=== PATIENT | male | born 1945 | race Caucasian/White ===

== ENCOUNTER 2018-02-08 11:29 | Inpatient (IN) | payer MEDICARE, SELFPAY ==
[2018-02-08] VITALS (14 sets, daily range): BP systolic 99–123; BP diastolic 65–101; PULSE 86–138; RESP 13–24; TEMP 36–36.7; O2SAT 93–99; BMI 30.8; BMI 31.6; BMI 31.7
--- NOTE | 2018-02-08 11:36 | NURSING ---
NO OLD EKGS
--- NOTE | 2018-02-08 12:13 | RAD_ITS ---
STUDY: X-RAY CHEST REASON FOR EXAM: Male, 73 years old. Chest pain. TECHNIQUE: AP portable view. COMPARISON: None. FINDINGS: Mild pulmonary hypoinflation. The lungs are clear. There is no demonstrated pleural abnormality. Normal size heart. Normal mediastinum and jose. Normal visualized pulmonary arteries. Normal visualized aortic arch and descending thoracic aorta. Normal visualized thoracic spine. Normal visualized ribs, clavicles, and shoulders. There is no demonstrated abnormality of the visualized soft tissue structures of the upper abdomen. RAD/Chest 1 View (Portable) IMPRESSION: Normal limited inspiratory chest radiograph. Electronically Signed: Homer Van MD at 12:50 EDT , Service support ,
--- NOTE | 2018-02-08 12:13 | EKG12_ITS ---
Test Reason : CP Blood Pressure : / mmHG Vent. Rate : 135 BPM Atrial Rate : 135 BPM P-R Int : 226 ms QRS Dur : 088 ms QT Int : 174 ms P-R-T Axes : -12 062 193 degrees QTc Int : 261 ms Sinus tachycardia with 1st degree A-V block Nonspecific ST and T wave abnormality Abnormal ECG Confirmed by AMILCAR BROOKS, PAM ([id number]), supervising editor trailer KI GARRETT ([id number]) on 02/12/2018 8:50:27 AM Referred By: Nghia Lopez Confirmed By:PAM FITZGERALD MD
--- NOTE | 2018-02-08 12:14 | ED.VISSUMM ---
- ER Visit Summary Date of Service: 02/08/18 Chief Complaint: Chest pain History of Present Illness: The patient is a 73 M presenting with chest pain. Patient woke up this morning with left-sided chest pain. He went golfing. He states he he began to feel diaphoretic and near syncopal. He has not had these symptoms in the past. He denies PE/DVT risk factors. He has a history of coronary disease, diabetes, hypertension, hyperlipidemia. He is not a smoker. He has 1 stent from 10 years ago. Physical Examination: Vitals are stable. Patient is afebrile. Alert no acute distress. HEENT exam is unremarkable. Neck is supple. Lungs are clear and equal bilaterally. Heart is regular and tachycardic Abdomen is soft nontender nondistended. Extremities are unremarkable. Skin is warm and dry. No focal neurologic deficit. Remainder of exam is unremarkable. Emergency Department Course and Treatment: EKG is sinus tachycardia rate of 135. Patient was given aspirin on arrival. CBC normal except platelets 133. Chemistry normal except for sodium 133, creatinine 1.81. Troponin is 0.379. D-dimer 2.81. Patient is pain-free on reevaluation. He was given Lovenox subcutaneously. Discussed with the hospitalist for admission. Disposition: Admission Impression: Chest pain This note was generated with [employer] dictation software. It may contain incorrect words, spelling, and punctuation that were not noted in review of the chart prior to signing ED Disposition - Plan for ED Patient: Disposition: Acute Care Hospital [facility] Chief Complaint: Chest Pain
[2018-02-08] MEDS: Aspirin 81 MG TAB.CHEW 324 MG PO (12:21)
[2018-02-08 12:24] LABS: Absolute Lymphocyte Count 0.98 X10^3/ul (0.83-4.51); Absolute Neutrophil Count 7.6 X10^3/uL (2.0-7.7); Basophil# 0.02 X10^3/uL; Basophil% 0.2 % (0-1); Eosinophil# 0.06 X10^3/uL; Eosinophils% 0.7 % (0-5); Hematocrit 39.8 % (40-54); Hemoglobin 13.6 g/dl (13.0-16.5); Lymphocyte # 0.98 X10^3/ul (4.0); Lymphocyte % 10.8 % (19-41); Mean Corp Hgb Conc 34.2 g/gl (32-36); Mean Corpuscular Hgb 33.4 pg (27.0-32.0); Mean Corpuscular Volume 97.8 fL (80-94); Mean Platelet Vol. 10.4 fl (6.2-12.0); Monocyte# 0.42 X10^3/uL; Monocyte% 4.6 % (0-10); Neutrophil # 7.59 X10^3/uL (2.7-7.7); Neutrophil % 83.5 % (47-70); POSITIVE COUNT NO; POSITIVE DIFFERENTIAL NO; POSITIVE MORPHOLOGY NO; Platelet Count 133 K/mm3 (150-450); RBC Distribution Width CV 13.7 % (11.6-14.6); RBC Distribution Width SD 48.5 fl (35.1-43.9); Red Blood Count 4.07 M/mm3 (4.6-6.2); White Blood Count 9.1 K/mm3 (4.4-11.0)
--- NOTE | 2018-02-08 12:27 | ED.RN ---
CESAR FROM LAB CALLED STATING D-DIMER NEEDS REDRAWN. INFORMATION RELAYED TO NURSE.
[2018-02-08 12:40] LABS: Anion Gap 16 (5-15); BUN 14 mg/dL (7-18); BUN/Creat Ratio 7.7 RATIO (10-20); Calcium,Total 8.4 mg/dL (8.5-10.1); Chloride 103 mmol/L (98-107); Creatinine, Serum 1.81 mg/dL (0.70-1.30); EST Glomerular Filtration Rate 40 mL/min (>60); Est Glom Filt Rate - Afr Amer 48 mL/min (>60); Estimated Creatinine Clearance 38.65 ml/min; Glucose 388 mg/dL (74-106); Potassium 4.4 mmol/L (3.5-5.1); Sodium Level 133 mmol/L (136-145)
[2018-02-08 12:53] LABS: D-Dimer Quantitative (DVT/PE) 2.81 FEU/ug/m (0.27-0.49)
--- NOTE | 2018-02-08 12:54 | ED.RN ---
LAB CALLED FOR RESULTS OF CRITICAL FINDING. D-DIMER RESULT OF 2.81, DR. AREVALO NOTIFIED FACE TO FACE. NO ORDERS GIVEN AT THIS TIME.
[2018-02-08] MEDS: Enoxaparin 100 MG/ML Syringe SC ×2 (14:00→22:16)
--- NOTE | 2018-02-08 14:47 | CT_ITS ---
STUDY: CTA CHEST REASON FOR EXAM: Male, 73 years old. Chest pain. RADIATION DOSAGE (If Supplied By Facility): CTDIvol = ( 22.81 ) mGy, DLP = ( 780.59 ) mGycm TECHNIQUE: The examination was performed with the intravenous administration of 75ml ml of Isovue 370 contrast material. Post-processing of the angiographic images was performed, with multiplanar reformation and 3D reconstruction. Individualized dose optimization techniques were used for this CT. COMPARISON: None. FINDINGS: There is a saddle embolus spanning the bifurcation of the right and left main pulmonary arteries. There are large central pulmonary emboli in the distal main pulmonary arteries bilaterally which extend into all lobes of both lungs. There is flattening of the interventricular septum, consistent with right heart strain. The heart is normal in size. There are coronary artery stents noted. There is no pericardial effusion. There is no thoracic lymphadenopathy. There is a moderate sized hiatal hernia present. There is no pneumothorax. There are no pulmonary infiltrates or pleural effusions. Images through the upper abdomen demonstrate no significant abnormality. There are no destructive osseous lesions. CT/CTA Chest W/WO Contrast IMPRESSION: Saddle embolus spanning the bifurcation of the right and left main pulmonary arteries. Large central pulmonary emboli in the distal main pulmonary arteries bilaterally which extend into all lobes of both lungs. Flattening of the interventricular septum, consistent with right heart strain. Clear lungs. Moderate-sized hiatal hernia. N.B. : The above information has been verbally conveyed by Ruiz Avelar to Dr. Lopez, SUMMER, on 02/08/2018 18:40:07 (ET). Electronically Signed: Ruiz Avelar, at 18:13 EDT Tel , Service support ,
--- NOTE | 2018-02-08 14:47 | ECHOD_ITS ---
Reason For Study: CHEST PAIN Procedure This was a 2D Doppler, Color Flow transthoracic echocardiogram. Exam performed portable in patient room. Left Ventricle Normal LV size. The estimated ejection fraction is 50 %. Diastolic function is indeterminate. No regional wall motion abnormalities noted. Right Ventricle Moderately dilated right ventricle. Mild to moderate global right ventricular systolic dysfunction. Atria The left atrium is mildly enlarged. Normal right atrium. Mitral Valve Normal mitral valve. Tricuspid Valve Normal tricuspid valve. Mild (1+) tricuspid valve insufficiency. Pulmonary artery systolic pressure is 28 mmHg. Aortic Valve The aortic valve is not well visualized. Pulmonic Valve The pulmonic valve is not well visualized. Great Vessels Mildly dilated aortic root. The pulmonary artery is normal size. Pericardium/Pleural No pericardial effusion. MMode/2D Measurements & Calculations LVIDd: 5.1 cm IVSd: 0.87 cm Ao root diam: 3.6 cm LVIDs: 3.8 cm LVPWd: 0.95 cm LA dimension: 3.5 cm FS: 25.4 % LAV(MOD-bp): 59.1 ml LVAd ap4: 32.7 cm2 SV(MOD-sp4): 54.6 ml LAV(MOD-bp) Indexed: 27.2 ml/m2 EDV(MOD-sp4): 113.6 ml LAV(MOD-sp2): 53.3 ml EDV(sp4-el): 117.7 ml LAV(MOD-sp4): 63.8 ml LVAs ap4: 21.1 cm2 ESV(MOD-sp4): 59.0 ml ESV(sp4-el): 60.3 ml EF(MOD-sp4): 48.1 % EF(sp4-el): 48.8 % SV(sp4-el): 57.4 ml LA A4 area: 21.4 cm2 RA A4 area: 17.2 cm2 Doppler Measurements & Calculations Ao V2 max: 96.8 cm/sec LV V1 max: 48.6 cm/sec PA V2 max: 60.5 cm/sec Ao max P.8 mmHg LV V1 max P.95 mmHg PI end-d isaac: 80.1 cm/sec TR max isaac: 244.5 cm/sec TR max P.0 mmHg Interpretation Summary Normal LV size. The estimated ejection fraction is 50 %. Diastolic function is indeterminate. Moderately dilated right ventricle. Mild to moderate global right ventricular systolic dysfunction. Mild (1+) tricuspid valve insufficiency. Ordering Physician: Nghia Lopez Performed By: Mame Armas, CELENACS, RVT
[2018-02-08] MEDS: 0.9% Normal Saline 1,000 ML 125 ML IV ×2 (15:30→22:19)
[2018-02-08 15:41] LABS: Bedside Glucose 252 mg/dL (70-110)
[2018-02-08] MEDS: Clopidogrel Bisulfate 75 MG Tablet PO (15:49)
[2018-02-08] MEDS: Insulin Lispro 100 UNIT/ML INSULN.PEN SC (17:32)
[2018-02-08] MEDS: Glucerna Shake 120 ML LIQUID PO (17:35)
--- NOTE | 2018-02-08 17:43 | PCM.HP.STD ---
Problem List (1) Chest pain Status: Acute Qualifiers: Chest pain type: precordial pain Qualified Code(s): R07.2 - Precordial pain History of Present Illness Date of Admission: 02/08/18 Chief Complaint: Chest pain The patient is a 73 year old M who was seen in the emergency room at [facility] with chief complaint of precordial chest pain which began earlier this morning. He described the chest pain as pressure-like in nature, it was accompanied by weakness but no shortness of breath. Patient denied any diaphoresis, he denied any radiation of the chest discomfort into his neck or down his arms or into his back area. Patient denied any nausea or vomiting. Patient stated to this examiner that activity actually resulted in the chest pain getting better today. Patient has a remote history of coronary artery disease with a stent placement 10 years ago, he does have type 2 diabetes. Evaluation in the emergency room included an EKG which showed a sinus tachycardia without evidence of ischemic changes, patient's labs showed an elevated troponin at 0.379, patient's glucose is elevated at 388, white blood cell count was unremarkable. Patient had a chest x-ray which showed no evidence of pathology, patient's d-dimer was elevated at 2.81, he was elevated at 1.81. On examination, patient is alert and appropriate, he does not have any complaints of chest pain, lungs were clear bilaterally, heart rate and rhythm is regular, no lower extremity edema was noted. Patient will be admitted to PCU for a non-STEMI, cardiology was contacted and will see the patient in consultation, they advised giving the patient Plavix and Lovenox subcu to fully anticoagulate the patient. Due to the fact the patient has an elevated d-dimer and I do not really have a reason for this d-dimer elevation, patient may have a pulmonary embolism and I will order a CTA to be done after the patient reaches the floor. Patient will be given IV fluids due to his elevated creatinine. Past Medical History Allergies No Known Allergies Allergy (Verified 02/08/18 11:54) Surgical History: tonsillectomy, - - Coronary artery stent placement Psychiatric History: No pertinent psych hx Lives: Spouse/ Significant Other Smoking Status: Former smoker Tobacco Use: Non-smoker Alcohol: Occasional - Patient has regular alcohol intake of approximately 4 drinks a night according to the Drugs: None - *Family History Maternal History Items: Heart Disease - Patient's mother of an MA in her 60s Paternal History Items: Cancer - Prostate cancer Review of Systems Constitutional: Reports: Fatigue. Denies: Anorexia, Fever, Night Sweats, Malaise, Weakness, Weight Change Eyes: Denies: Blurred vision, Cataracts, Conjunctivae Inflammation, Double vision, Drainage HEENT: Denies: Difficulty Hearing, Difficulty Swallowing, Dysphasia, Ear Pain, Eye Pain, Head Aches, Hearing Changes, Nasal bleeding, Nasal Congestion, Post Nasal Drip Cardiovascular: Reports: Chest Pain, Chest Pressure. Denies: Claudication, Edema, Light Headedness, Orthopnea, Palpitations, Paroxysmal Noc. Dyspnea, Syncope Respiratory: Denies: Cough, Hemoptysis, Pleuritic Pain, Shortness of Breath, Shortness of breath at rest, Shortness of breath upon exertion, Sputum production Gastrointestinal: Denies: Abdominal Pain, Constipation, Diarrhea, Hematemesis, Hematochezia, Nausea, Melena, Vomiting Genitourinary: Denies: Dysuria, Frequency, Hematuria, Hesitancy, Incontinence, Nocturia, Urgency Musculoskeletal: Denies: Foot Pain, Hand Pain, Joint Pain, Joint stiffness, Joint swelling, Joint Tenderness, Leg Pain Skin: Denies: Dryness, Jaundice, Pruritis, Rash Neurological: Denies: Blurred vision, Double vision, Slurred speech, Difficulty swallowing, Focal weakness, Headaches, Incoordination, Numbness, Tingling Psychiatric: Denies: Anxiety, Depression, Homicidal Ideations, Suicidal Ideations Endocrine: Denies: Change in Body Habitus, Heat/ Cold Intolerance, Polydipsia, Polyuria Hematologic/ Lymphatic: Denies: Adenopathy, Anemia, Easy Bruising, Easy Bleeding, Petechiae, Purpura VTE Information - Inpt Only VTE Present on Admission: No VTE Mechan Device Prophylaxis: None VTE Pharm Prophylaxis ordered?: No Reason prophylaxis not ordered:: Medical Contraindication - Patient will be fully anticoagulated due to suspected non-STEMI Patient Problems: Active and Suspected Problems Chest pain (Acute) - Physical Exam General: Alert, Oriented x3, Cooperative, No apparent distress, Well developed, Well nourished HEENT: Atraumatic, PERRLA, EOMI, Normocephalic Oral: Moist Mucosa Neck: Supple, No JVD, Negative Carotid Bruits, No Nuchal Rigidity, Trachea Midline, Thyroid Normal Size and Texture Lungs: Clear to auscultation, Normal air movement, No rhonchi, No wheeze, No rales Cardiovascular: Regular rate, Regular Rhythm, Normal S1, Normal S2, No murmurs, No Ectopic Activity, PMI Normal, No rub noted, Tachycardic Abdomen: Bowel Sounds Present, Soft, Non Tender, Non-Distended Extremities: No clubbing, No cyanosis, No edema, Capillary Refill Less than 3 Seconds Skin: No rashes, No breakdown Musculoskeletal: No Tenderness to Palpation of Joints or Extremities Neurological: Cranial nerves II-XII grossly intact, Neuro grossly intact, Muscle tone normal, Sensory exam intact to light touch and pain, Coordination normal Psych/Mental Status: Normal Affect, Appropriate, Alert and oriented to time, place, person, mood and affect Vital Signs Temp Pulse Resp BP Pulse Ox 97.5 F L 113 H 19 H 104/70 96 02/08/18 14:52 02/08/18 14:52 02/08/18 14:52 02/08/18 14:52 02/08/18 15:45 Oxygen Flow Rate (L/min) 2 Oxygen Delivery Method Nasal Cannula Weight: 100.2 kg Body Mass Index (BMI) 31.6 Laboratory Tests Past 24 Hrs 02/08/18 15:59 Troponin I 0.797 H* POC Glucose 02/08/18 15:31 POC Glucose 252 H Assessment/Plan All Active Problems Chest pain (Acute) #1 acute [id number] will be admitted to PCU, he will be maintained on subcu Lovenox for full anticoagulation, cardiac enzymes will be cycled, he will be monitored on telemetry, patient will have an echocardiogram performed, patient will be seen in consultation by cardiology, patient will be maintained on a baby aspirin a day and Plavix 75 mg daily. #2 elevated [id number]-[id number] unclear, patient will undergo CTA of his chest today to rule out pulmonary embolism #3 type 2 diabetes-patient's blood sugars will be monitored by fingerstick and sliding scale insulin will be administered #4 elevated creatinine-I have no creatinine available for comparison, patient will be given IV fluids and a BMP will be rechecked tomorrow #5 history of coronary artery disease with stent placement approximately 10 years ago #6 hyperlipidemia #7 essential hypertension At this time, patient does not know the doses of his medications, his also does not know the doses of his medications, she is to contact nursing this evening to provide a full list and dose of his medications. Code Visit Inpatient E&M: 00325 Init Hosp L3
--- NOTE | 2018-02-08 17:48 | HP.PCM_ITS ---
Problem List (1) Chest pain Status: Acute Qualifiers: Chest pain type: precordial pain Qualified Code(s): R07.2 - Precordial pain History of Present Illness Date of Admission: 02/08/18 Chief Complaint: Chest pain The patient is a 73 year old M who was seen in the emergency room at [facility] with chief complaint of precordial chest pain which began earlier this morning. He described the chest pain as pressure-like in nature, it was accompanied by weakness but no shortness of breath. Patient denied any diaphoresis, he denied any radiation of the chest discomfort into his neck or down his arms or into his back area. Patient denied any nausea or vomiting. Patient stated to this examiner that activity actually resulted in the chest pain getting better today. Patient has a remote history of coronary artery disease with a stent placement 10 years ago, he does have type 2 diabetes. Evaluation in the emergency room included an EKG which showed a sinus tachycardia without evidence of ischemic changes, patient's labs showed an elevated troponin at 0.379, patient's glucose is elevated at 388, white blood cell count was unremarkable. Patient had a chest x-ray which showed no evidence of pathology, patient's d-dimer was elevated at 2.81, he was elevated at 1.81. On examination, patient is alert and appropriate, he does not have any complaints of chest pain, lungs were clear bilaterally, heart rate and rhythm is regular, no lower extremity edema was noted. Patient will be admitted to PCU for a non-STEMI, cardiology was contacted and will see the patient in consultation, they advised giving the patient Plavix and Lovenox subcu to fully anticoagulate the patient. Due to the fact the patient has an elevated d-dimer and I do not really have a reason for this d-dimer elevation, patient may have a pulmonary embolism and I will order a CTA to be done after the patient reaches the floor. Patient will be given IV fluids due to his elevated creatinine. Past Medical History Allergies No Known Allergies Allergy (Verified 02/08/18 11:54) Surgical History: tonsillectomy, - - Coronary artery stent placement Psychiatric History: No pertinent psych hx Lives: Spouse/ Significant Other Smoking Status: Former smoker Tobacco Use: Non-smoker Alcohol: Occasional - Patient has regular alcohol intake of approximately 4 drinks a night according to the Drugs: None - *Family History Maternal History Items: Heart Disease - Patient's mother of an NE in her 60s Paternal History Items: Cancer - Prostate cancer Review of Systems Constitutional: Reports: Fatigue. Denies: Anorexia, Fever, Night Sweats, Malaise, Weakness, Weight Change Eyes: Denies: Blurred vision, Cataracts, Conjunctivae Inflammation, Double vision, Drainage HEENT: Denies: Difficulty Hearing, Difficulty Swallowing, Dysphasia, Ear Pain, Eye Pain, Head Aches, Hearing Changes, Nasal bleeding, Nasal Congestion, Post Nasal Drip Cardiovascular: Reports: Chest Pain, Chest Pressure. Denies: Claudication, Edema, Light Headedness, Orthopnea, Palpitations, Paroxysmal Noc. Dyspnea, Syncope Respiratory: Denies: Cough, Hemoptysis, Pleuritic Pain, Shortness of Breath, Shortness of breath at rest, Shortness of breath upon exertion, Sputum production Gastrointestinal: Denies: Abdominal Pain, Constipation, Diarrhea, Hematemesis, Hematochezia, Nausea, Melena, Vomiting Genitourinary: Denies: Dysuria, Frequency, Hematuria, Hesitancy, Incontinence, Nocturia, Urgency Musculoskeletal: Denies: Foot Pain, Hand Pain, Joint Pain, Joint stiffness, Joint swelling, Joint Tenderness, Leg Pain Skin: Denies: Dryness, Jaundice, Pruritis, Rash Neurological: Denies: Blurred vision, Double vision, Slurred speech, Difficulty swallowing, Focal weakness, Headaches, Incoordination, Numbness, Tingling Psychiatric: Denies: Anxiety, Depression, Homicidal Ideations, Suicidal Ideations Endocrine: Denies: Change in Body Habitus, Heat/ Cold Intolerance, Polydipsia, Polyuria Hematologic/ Lymphatic: Denies: Adenopathy, Anemia, Easy Bruising, Easy Bleeding , Petechiae, Purpura VTE Information - Inpt Only VTE Present on Admission: No VTE Mechan Device Prophylaxis: None VTE Pharm Prophylaxis ordered?: No Reason prophylaxis not ordered:: Medical Contraindication - Patient will be fully anticoagulated due to suspected non-STEMI Patient Problems: Active and Suspected Problems Chest pain (Acute) - Physical Exam General: Alert, Oriented x3, Cooperative, No apparent distress, Well developed, Well nourished HEENT: Atraumatic, PERRLA, EOMI, Normocephalic Oral: Moist Mucosa Neck: Supple, No JVD, Negative Carotid Bruits, No Nuchal Rigidity, Trachea Midline, Thyroid Normal Size and Texture Lungs: Clear to auscultation, Normal air movement, No rhonchi, No wheeze, No rales Cardiovascular: Regular rate, Regular Rhythm, Normal S1, Normal S2, No murmurs, No Ectopic Activity, PMI Normal, No rub noted, Tachycardic Abdomen: Bowel Sounds Present, Soft, Non Tender, Non-Distended Extremities: No clubbing, No cyanosis, No edema, Capillary Refill Less than 3 Seconds Skin: No rashes, No breakdown Musculoskeletal: No Tenderness to Palpation of Joints or Extremities Neurological: Cranial nerves II-XII grossly intact, Neuro grossly intact, Muscle tone normal, Sensory exam intact to light touch and pain, Coordination normal Psych/Mental Status: Normal Affect, Appropriate, Alert and oriented to time, place, person, mood and affect Vital Signs Temp Pulse Resp BP Pulse Ox 97.5 F L 113 H 19 H 104/70 96 02/08/18 14:52 02/08/18 14:52 02/08/18 14:52 02/08/18 14:52 02/08/18 15:45 Oxygen Flow Rate (L/min) 2 Oxygen Delivery Method Nasal Cannula Weight: 100.2 kg Body Mass Index (BMI) 31.6 Laboratory Tests Past 24 Hrs 02/08/18 15:59 Troponin I 0.797 H* POC Glucose 02/08/18 15:31 POC Glucose 252 H Assessment/Plan All Active Problems Chest pain (Acute) #1 acute [id number] will be admitted to PCU, he will be maintained on subcu Lovenox for full anticoagulation, cardiac enzymes will be cycled, he will be monitored on telemetry, patient will have an echocardiogram performed, patient will be seen in consultation by cardiology, patient will be maintained on a baby aspirin a day and Plavix 75 mg daily. #2 elevated [id number] unclear, patient will undergo CTA of his chest today to rule out pulmonary embolism #3 type 2 diabetes-patient's blood sugars will be monitored by fingerstick and sliding scale insulin will be administered #4 elevated creatinine-I have no creatinine available for comparison, patient will be given IV fluids and a BMP will be rechecked tomorrow #5 history of coronary artery disease with stent placement approximately 10 years ago #6 hyperlipidemia #7 essential hypertension At this time, patient does not know the doses of his medications, his also does not know the doses of his medications, she is to contact nursing this evening to provide a full list and dose of his medications. Code Visit Inpatient E&M: 85253 Init Hosp L3
--- NOTE | 2018-02-08 17:55 | PCM.HOSP.N ---
Hospitalist Note I received word this afternoon the patient's CTA of his chest was positive for pulmonary embolus, I let the patient and the patient's daughter know this, I also talked with cardiology who did not feel they needed to see the patient at this time-they would be glad to see the patient if his troponin elevates markedly. I will keep the patient on Lovenox for now, he does not require any oxygen as he is not hypoxic, patient has not had any history of venous thromboembolism in the past and he is not aware of any history in his family. Patient has had no swelling in his legs and he has had no trauma to his lower extremity and he has not had an extended period of immobility. He will need further workup as an outpatient to exclude an occult malignancy. Echocardiogram will be performed on Saturday, I may also order a venous duplex scan of both lower extremities to further investigate his VTE.
--- NOTE | 2018-02-08 22:10 | NURSING ---
VERIFIED WITH PHARMACY WAS OKAY TO GIVE DOSE OF LOVENOX AT THIS TIME.
[2018-02-08] MEDS: Atorvastatin Calcium 80 MG Tablet PO (22:17)
[2018-02-08] MEDS: Pantoprazole Sodium 40 MG Tablet PO (22:17)
[2018-02-08] MEDS: Doxazosin 1 MG Tablet 2 MG PO (22:17)
[2018-02-08 22:41] LABS: Bedside Glucose 134 mg/dL (70-110)
[2018-02-09] VITALS (13 sets, daily range): BP systolic 104–132; BP diastolic 61–72; PULSE 66–90; RESP 16–19; TEMP 36.1–37.1; O2SAT 94–97
--- NOTE | 2018-02-09 03:47 | EKG12_ITS ---
Test Reason : RHY CHANGE Blood Pressure : / mmHG Vent. Rate : 079 BPM Atrial Rate : 038 BPM P-R Int : 000 ms QRS Dur : 090 ms QT Int : 426 ms P-R-T Axes : 000 063 -08 degrees QTc Int : 488 ms Accelerated Junctional rhythm with retrograde conduction Nonspecific T wave abnormality Prolonged QT Abnormal ECG When compared with ECG of 08-FEB-2018 11:30, MANUAL COMPARISON REQUIRED, DATA IS UNCONFIRMED Confirmed by HERMAN BROOKS, KATIA ([id number]), metropolitan editor KI GARRETT ([id number]) on 02/14/2018 2:37:30 PM Referred By: Nghia Lopez Confirmed By:KATIA SUTTON MD
[2018-02-09 05:12] LABS: Anion Gap 10 (5-15); BUN 13 mg/dL (7-18); BUN/Creat Ratio 8.6 RATIO (10-20); Chloride 110 mmol/L (98-107); Creatinine, Serum 1.52 mg/dL (0.70-1.30); EST Glomerular Filtration Rate 48 mL/min (>60); Est Glom Filt Rate - Afr Amer 58 mL/min (>60); Estimated Creatinine Clearance 46.03 ml/min; Glucose 116 mg/dL (74-106); Magnesium 1.1 mg/dL (1.6-2.6); Phosphorus 2.8 mg/dL (2.5-4.9); Sodium Level 140 mmol/L (136-145)
[2018-02-09] MEDS: 0.9% Normal Saline 1,000 ML 125 ML IV ×2 (05:55→14:13)
[2018-02-09 06:56] LABS: Bedside Glucose 135 mg/dL (70-110)
--- NOTE | 2018-02-09 09:08 | VDLE_ITS ---
Reason For Study: PE RIGHT LEFT GSV is normal. GSV is normal. CFV is compressible, spontaneous, phasic, CFV is compressible, spontaneous, phasic, competent and demonstrates normal competent, and demonstrates normal augmentation. augmentation. FV is compressible, spontaneous, phasic, FV is compressible, spontaneous, phasic, competent and demonstrates normal competent and demonstrates normal augmentation. augmentation. POP V is compressible, spontaneous, phasic, POP V is compressible, spontaneous, phasic, competent and demonstrates normal competent and demonstrates normal augmentation. augmentation. T/P Trunk is compressible. T/P Trunk is compressible. PTV is compressible. PTV is compressible. RT PerV is compressible. LT PerV is compressible. Procedure Exam performed portable in patient room. A preliminary report was called and/or faxed to [facility]. Interpretation Summary No evidence for acute deep venous thrombosis bilateral lower extremities with patent and compressible bilateral great saphenous veins. Ordering Physician: Nghia Lopez Referring Physician: Nghia Lopez Performed By: Clary Cedillo RVT
[2018-02-09] MEDS: Glucerna Shake 120 ML LIQUID PO ×3 (09:25→16:36)
[2018-02-09] MEDS: Aspirin E.C. 81 MG Tablet PO (09:26)
[2018-02-09] MEDS: Fenofibrate 145 MG Tablet PO (09:26)
[2018-02-09] MEDS: Pantoprazole Sodium 40 MG Tablet PO ×2 (09:27→22:05)
[2018-02-09] MEDS: Lisinopril 40 MG Tablet PO (09:27)
[2018-02-09] MEDS: Rivaroxaban 15 MG Tablet PO ×2 (10:46→16:36)
--- NOTE | 2018-02-09 11:34 | PCM.CONS.GEN ---
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 use Diabetes mellitus complication status: with circulatory complication Diabetes mellitus complication detail: with other circulatory complications Qualified Code(s): E11.59 - Type 2 diabetes mellitus with other circulatory complications (5) GERD (gastroesophageal reflux disease) Status: Chronic Qualifiers: Esophagitis presence: esophagitis presence not specified Qualified Code(s): K21.9 - Gastro-esophageal reflux disease without esophagitis (6) Hypertension Status: Chronic Qualifiers: Hypertension type: essential hypertension Qualified Code(s): I10 - Essential (primary) hypertension Reason for Consult Date of Consultation: 02/09/18 Reason for Consultation: Pulmonary embolism History of Present Illness: The patient is a 73 year old M with past medical history listed below, who presented to [facility] on 02/08/2018 secondary to chest pain and shortness of breath. 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 Patient denied any associated diaphoresis, radiation, nausea or vomiting. Patient did note that his shortness of breath did not improve with resting. Patient was transported to the ER for further evaluation. In the emergency room, patient was noted to have sinus tachycardia and an elevated troponin. Patient was given Lovenox subcutaneously. There was some concern for possible pulmonary embolism, so a CT scan was obtained despite elevated creatinine. This was notable for saddle PE, so patient was admitted to the floor for further evaluation. Patient denies any previous history of immobility, travel or trauma. Patient states he has had his routine cancer screening. Patient denies any family history of previous blood clots. 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 Patient does drink 2-4 alcoholic beverages per day, but is never had withdrawal symptoms. Patient denies any illicit drug use. Patient does not take any herbal medications. Patient does have a history of coronary artery disease and had a stent placed approximately 10 years ago. Patient denies any prodromal symptoms prior to onset of symptoms. Patient denies any lower extremity edema, cellulitis, fever, chills, nausea or vomiting. Patient exercises regularly by swimming and playing [email or web address]. Review of systems otherwise negative x10 systems. Past Medical History Past Medical History (Chronic Problems): Chronic Problems Obesity (BMI 30.0-34.9) (Chronic) Diabetes mellitus (Chronic) GERD (gastroesophageal reflux disease) (Chronic) Hypertension (Chronic) Allergies No Known Allergies Allergy (Verified 02/08/18 11:54) Home Medications: Ambulatory Orders Medication Instructions Recorded Atenolol [Tenormin] 100 mg PO DAILY 02/08/18 Doxazosin Mesylate 2 mg PO QHS 02/08/18 Fenofibrate Nanocrystallized 160 mg PO DAILY 02/08/18 [Fenofibrate] Glimepiride [Amaryl] 6 mg PO DAILY 02/08/18 Liraglutide [Victoza] 1.8 mg SQ DAILY 02/08/18 Lisinopril [Zestril] 40 mg PO DAILY 02/08/18 Metformin HCl 1,000 mg PO BID 02/08/18 Pantoprazole Sodium [Protonix] 40 mg PO BID 02/08/18 Rosuvastatin Calcium [Crestor] 40 mg PO QHS 02/08/18 Surgical History: tonsillectomy, - - Coronary artery stent placement Psychiatric History: No pertinent psych hx Lives: Spouse/ Significant Other Smoking Status: Former smoker Tobacco Use: Non-smoker Alcohol: Occasional - Patient has regular alcohol intake of approximately 4 drinks a night according to the Drugs: None - *Family History Maternal History Items: Heart Disease - Patient's mother of an IN in her 60s Paternal History Items: Cancer - Prostate cancer Review of Systems Comment: See HPI Patient Problems: Active and Suspected Problems Chest pain (Acute) Saddle embolism of pulmonary artery (Acute) - Physical Exam General: Alert, Oriented x3, Cooperative, No apparent distress, Well developed, Well nourished, - - Obese HEENT: Atraumatic, PERRLA, EOMI, Normocephalic, - - No scleral icterus or injection Oral: Moist Mucosa, No Gingival or Mucosal Lesions/ Ulcerations Neck: Supple, No JVD, No Nodes, Trachea Midline Lungs: Clear to auscultation, Normal air movement, No rhonchi, No wheeze, No rales, - - Symmetric expansion. No dullness to percussion. Cardiovascular: Regular rate, Regular Rhythm, Normal S1, Normal S2, No murmurs, No rub noted, No Gallop Abdomen: Bowel Sounds Present, Soft, Non Tender, Non-Distended, Obese Extremities: No clubbing, No cyanosis, No edema, Capillary Refill Less than 3 Seconds Skin: No rashes, No breakdown Musculoskeletal: No Tenderness to Palpation of Joints or Extremities, No Muscle Wasting Lymphatic: No Cervical, Supraclavicular, or Inguinal Adenopathy Neurological: Cranial nerves II-XII grossly intact, Neuro grossly intact, Motor Exam 5/5 strength throughout Psych/Mental Status: Alert and oriented to time, place, person, mood and affect Vital Signs Temp Pulse Resp BP Pulse Ox 36.4 C L 90 19 H 112/62 95 02/09/18 09:21 02/09/18 09:21 02/09/18 09:21 02/09/18 09:21 02/09/18 09:21 Oxygen Flow Rate (L/min) 2 Oxygen Delivery Method Nasal Cannula Weight: 100.2 kg Body Mass Index (BMI) 31.6 Intake and Output for Last 24 Hours 02/07/18 02/08/18 02/09/18 23:59 23:59 23:59 Intake Total 1579 / 1579 944 / 944 Balance 1579 / 1579 944 / 944 Laboratory Tests Past 24 Hrs 02/08/18 02/08/18 02/09/18 15:59 18:00 04:44 Sodium 140 Potassium 4.0 Chloride 110 H Carbon Dioxide 20.0 L Anion Gap 10 BUN 13 Creatinine 1.52 H Estim Creat Clear Calc 46.03 Est GFR (MDRD) Af Amer 58 L Est GFR (MDRD) Non-Af 48 L BUN/Creatinine Ratio 8.6 L Glucose 116 H Calcium 8.0 L Phosphorus 2.8 Magnesium 1.1 L Troponin I 0.797 H* 0.855 H* POC Glucose 02/09/18 02/08/18 02/08/18 06:45 22:15 15:31 POC Glucose 135 H 134 H 252 H Clinical Impression(s) from Imaging Studies Chest X-Ray 02/08/18 12:13 IMPRESSION: Normal limited inspiratory chest radiograph. Electronically Signed: Homer Van MD at 12:50 EDT , Service support , Chest CTA 02/08/18 14:47 IMPRESSION: Saddle embolus spanning the bifurcation of the right and left main pulmonary arteries. Large central pulmonary emboli in the distal main pulmonary arteries bilaterally which extend into all lobes of both lungs. Flattening of the interventricular septum, consistent with right heart strain. Clear lungs. Moderate-sized hiatal hernia. N.B. : The above information has been verbally conveyed by Ruiz Avelar to Dr. Lopez, [facility], on 02/08/2018 18:40:07 (ET). Electronically Signed: Ruiz Avelar, at 18:13 EDT Tel , Service support , Assessment/Plan All Active Problems Chest pain (Acute) Saddle embolism of pulmonary artery (Acute) RECOMMENDATIONS: 1. Continue Lovenox therapy 2. Await echocardiogram 3. Walking oximetry prior to discharge 4. Prefer discharge on Eliquis therapy 5. Continue to cycle troponins, monitor telemetry IMPRESSIONS: 1. Acute hypoxic respiratory insufficiency secondary to saddle PE Patient currently on 2 L nasal cannula oxygen. Patient with extensive clot burden on CT scan of the chest, but appears to be tolerating this well. Patient does have an elevation in troponin, likely secondary to supply demand mismatch. Will need echo to evaluate for right heart strain. Patient does have elevated creatinine at baseline and likely should be placed on Eliquis therapy on discharge. Patient will need a walking oximetry prior to discharge. 2. Non-ST elevation [place] Patient was slightly elevated troponin, but no significant EKG changes. Clinical suspicion for supply demand mismatch, but patient does have a history of coronary artery disease with a stent approximately 10 years ago. Patient is currently on Lovenox therapy. Defer to hospitalist on whether cardiology needs to get involved. Await results of echocardiogram 3. Obesity/advanced age/diabetes/GERD/hypertension Complicates care, management, recovery and prognosis. Likely okay to continue with baseline medications. Monitor blood sugars as these can be elevated secondary to adrenal response. Code Visit Inpatient E&M: 75359 Init Hosp L3
--- NOTE | 2018-02-09 11:55 | CON.PCM_ITS ---
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: without longterm use Diabetes mellitus complication status: with circulatory complication Diabetes mellitus complication detail: with other circulatory complications Qualified Code(s): E11.59 - Type 2 diabetes mellitus with other circulatory complications (5) GERD (gastroesophageal reflux disease) Status: Chronic Qualifiers: Esophagitis presence: esophagitis presence not specified Qualified Code(s) : K21.9 - Gastro-esophageal reflux disease without esophagitis (6) Hypertension Status: Chronic Qualifiers: Hypertension type: essential hypertension Qualified Code(s): I10 - Essential (primary) hypertension Reason for Consult Date of Consultation: 02/09/18 Reason for Consultation: Pulmonary embolism History of Present Illness: The patient is a 73 year old M with past medical history listed below, who presented to [facility] on 02/08/2018 secondary to chest pain and shortness of breath. 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 Patient denied any associated diaphoresis, radiation, nausea or vomiting. Patient did note that his shortness of breath did not improve with resting. Patient was transported to the ER for further evaluation. In the emergency room, patient was noted to have sinus tachycardia and an elevated troponin. Patient was given Lovenox subcutaneously. There was some concern for possible pulmonary embolism, so a CT scan was obtained despite elevated creatinine. This was notable for saddle PE, so patient was admitted to the floor for further evaluation. Patient denies any previous history of immobility, travel or trauma. Patient states he has had his routine cancer screening. Patient denies any family history of previous blood clots. 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 Patient does drink 2-4 alcoholic beverages per day, but is never had withdrawal symptoms. Patient denies any illicit drug use. Patient does not take any herbal medications. Patient does have a history of coronary artery disease and had a stent placed approximately 10 years ago. Patient denies any prodromal symptoms prior to onset of symptoms. Patient denies any lower extremity edema, cellulitis, fever, chills, nausea or vomiting. Patient exercises regularly by swimming and playing [employer]. Review of systems otherwise negative x10 systems. Past Medical History Past Medical History (Chronic Problems): Chronic Problems Obesity (BMI 30.0-34.9) (Chronic) Diabetes mellitus (Chronic) GERD (gastroesophageal reflux disease) (Chronic) Hypertension (Chronic) Allergies No Known Allergies Allergy (Verified 02/08/18 11:54) Home Medications: Ambulatory Orders Medication Instructions Recorded Atenolol [Tenormin] 100 mg PO DAILY 02/08/18 Doxazosin Mesylate 2 mg PO QHS 02/08/18 Fenofibrate Nanocrystallized 160 mg PO DAILY 02/08/18 [Fenofibrate] Glimepiride [Amaryl] 6 mg PO DAILY 02/08/18 Liraglutide [Victoza] 1.8 mg SQ DAILY 02/08/18 Lisinopril [Zestril] 40 mg PO DAILY 02/08/18 Metformin HCl 1,000 mg PO BID 02/08/18 Pantoprazole Sodium [Protonix] 40 mg PO BID 02/08/18 Rosuvastatin Calcium [Crestor] 40 mg PO QHS 02/08/18 Surgical History: tonsillectomy, - - Coronary artery stent placement Psychiatric History: No pertinent psych hx Lives: Spouse/ Significant Other Smoking Status: Former smoker Tobacco Use: Non-smoker Alcohol: Occasional - Patient has regular alcohol intake of approximately 4 drinks a night according to the Drugs: None - *Family History Maternal History Items: Heart Disease - Patient's mother of an OR in her 60s Paternal History Items: Cancer - Prostate cancer Review of Systems Comment: See HPI Patient Problems: Active and Suspected Problems Chest pain (Acute) Saddle embolism of pulmonary artery (Acute) - Physical Exam General: Alert, Oriented x3, Cooperative, No apparent distress, Well developed, Well nourished, - - Obese HEENT: Atraumatic, PERRLA, EOMI, Normocephalic, - - No scleral icterus or injection Oral: Moist Mucosa, No Gingival or Mucosal Lesions/ Ulcerations Neck: Supple, No JVD, No Nodes, Trachea Midline Lungs: Clear to auscultation, Normal air movement, No rhonchi, No wheeze, No rales, - - Symmetric expansion. No dullness to percussion. Cardiovascular: Regular rate, Regular Rhythm, Normal S1, Normal S2, No murmurs, No rub noted, No Gallop Abdomen: Bowel Sounds Present, Soft, Non Tender, Non-Distended, Obese Extremities: No clubbing, No cyanosis, No edema, Capillary Refill Less than 3 Seconds Skin: No rashes, No breakdown Musculoskeletal: No Tenderness to Palpation of Joints or Extremities, No Muscle Wasting Lymphatic: No Cervical, Supraclavicular, or Inguinal Adenopathy Neurological: Cranial nerves II-XII grossly intact, Neuro grossly intact, Motor Exam 5/5 strength throughout Psych/Mental Status: Alert and oriented to time, place, person, mood and affect Vital Signs Temp Pulse Resp BP Pulse Ox 36.4 C L 90 19 H 112/62 95 02/09/18 09:21 02/09/18 09:21 02/09/18 09:21 02/09/18 09:21 02/09/18 09:21 Oxygen Flow Rate (L/min) 2 Oxygen Delivery Method Nasal Cannula Weight: 100.2 kg Body Mass Index (BMI) 31.6 Intake and Output for Last 24 Hours 02/07/18 02/08/18 02/09/18 23:59 23:59 23:59 Intake Total 1579 / 1579 944 / 944 Balance 1579 / 1579 944 / 944 Laboratory Tests Past 24 Hrs 02/08/18 02/08/18 02/09/18 15:59 18:00 04:44 Sodium 140 Potassium 4.0 Chloride 110 H Carbon Dioxide 20.0 L Anion Gap 10 BUN 13 Creatinine 1.52 H Estim Creat Clear Calc 46.03 Est GFR (MDRD) Af Amer 58 L Est GFR (MDRD) Non-Af 48 L BUN/Creatinine Ratio 8.6 L Glucose 116 H Calcium 8.0 L Phosphorus 2.8 Magnesium 1.1 L Troponin I 0.797 H* 0.855 H* POC Glucose 02/09/18 02/08/18 02/08/18 06:45 22:15 15:31 POC Glucose 135 H 134 H 252 H Clinical Impression(s) from Imaging Studies Chest X-Ray 02/08/18 12:13 IMPRESSION: Normal limited inspiratory chest radiograph. Electronically Signed: Homer Van MD at 12:50 EDT , Service support , Chest CTA 02/08/18 14:47 IMPRESSION: Saddle embolus spanning the bifurcation of the right and left main pulmonary arteries. Large central pulmonary emboli in the distal main pulmonary arteries bilaterally which extend into all lobes of both lungs. Flattening of the interventricular septum, consistent with right heart strain. Clear lungs. Moderate-sized hiatal hernia. N.B. : The above information has been verbally conveyed by Ruiz Avelar to Dr. Lopez, [facility], on 02/08/2018 18:40:07 (ET). Electronically Signed: Ruiz Avelar, at 18:13 EDT Tel , Service support , Assessment/Plan All Active Problems Chest pain (Acute) Saddle embolism of pulmonary artery (Acute) RECOMMENDATIONS: 1. Continue Lovenox therapy 2. Await echocardiogram 3. Walking oximetry prior to discharge 4. Prefer discharge on Eliquis therapy 5. Continue to cycle troponins, monitor telemetry IMPRESSIONS: 1. Acute hypoxic respiratory insufficiency secondary to saddle PE Patient currently on 2 L nasal cannula oxygen. Patient with extensive clot burden on CT scan of the chest, but appears to be tolerating this well. Patient does have an elevation in troponin, likely secondary to supply demand mismatch. Will need echo to evaluate for right heart strain. Patient does have elevated creatinine at baseline and likely should be placed on Eliquis therapy on discharge. Patient will need a walking oximetry prior to discharge. 2. Non-ST elevation [place] Patient was slightly elevated troponin, but no significant EKG changes. Clinical suspicion for supply demand mismatch, but patient does have a history of coronary artery disease with a stent approximately 10 years ago. Patient is currently on Lovenox therapy. Defer to hospitalist on whether cardiology needs to get involved. Await results of echocardiogram 3. Obesity/advanced age/diabetes/GERD/hypertension Complicates care, management, recovery and prognosis. Likely okay to continue with baseline medications. Monitor blood sugars as these can be elevated secondary to adrenal response. Code Visit Inpatient E&M: 35244 Init Hosp L3
[2018-02-09 12:01] LABS: Bedside Glucose 288 mg/dL (70-110)
[2018-02-09] MEDS: Insulin Lispro 100 UNIT/ML INSULN.PEN SC ×2 (12:49→22:05)
[2018-02-09 16:45] LABS: Bedside Glucose 111 mg/dL (70-110)
--- NOTE | 2018-02-09 18:21 | PN_ITS ---
Patient Problems: Active and Suspected Problems Chest pain (Acute) Saddle embolism of pulmonary artery (Acute) Subjective: Patient was seen and examined today, patient's troponins peaked at 0.855 today, patient has no complaints of any chest pain, creatinine today was 1.52. I started the patient on Xarelto today-his creatinine clearance is very close to 50 and I believe he can take Xarelto. I will recheck the patient's BMP tomorrow , I have reviewed pulmonary medicine's consultation and appreciate their participation in his care, I have chosen not to get cardiology involved at the present time, I will discuss his care with them tomorrow, I am not sure if the patient is actually had a non-STEMI or whether the troponin elevation is due to his massive PE. Patient does not appear hypoxic today and is comfortable, echocardiogram will be performed tomorrow. I will also get a venous duplex scan of the patient's legs tomorrow - Physical Exam General: Alert, Oriented x3, Cooperative, No apparent distress, Well developed, Well nourished HEENT: Atraumatic, PERRLA, EOMI, Normocephalic Oral: Moist Mucosa Neck: Supple, Trachea Midline, Thyroid Normal Size and Texture Lungs: Clear to auscultation, Normal air movement, No rhonchi, No wheeze, No rales Cardiovascular: Regular rate, Regular Rhythm, Normal S1, Normal S2, No murmurs, No Ectopic Activity, PMI Normal, No rub noted, No Gallop Abdomen: Bowel Sounds Present, Soft, Non Tender, Non-Distended Extremities: No clubbing, No cyanosis, No edema, Capillary Refill Less than 3 Seconds Skin: No rashes, No breakdown Musculoskeletal: No Tenderness to Palpation of Joints or Extremities Neurological: Cranial nerves II-XII grossly intact, Neuro grossly intact, Sensory exam intact to light touch and pain, Coordination normal Psych/Mental Status: Normal Affect, Appropriate, Alert and oriented to time, place, person, mood and affect Vital Signs Temp Pulse Resp BP Pulse Ox 97.0 F L 76 18 132/61 H 97 02/09/18 14:11 02/09/18 15:07 02/09/18 14:11 02/09/18 14:11 02/09/18 14:11 Oxygen Flow Rate (L/min) 2 Oxygen Delivery Method Nasal Cannula Weight: 100.2 kg Body Mass Index (BMI) 31.6 Intake and Output for Last 24 Hours 02/07/18 02/08/18 02/09/18 23:59 23:59 23:59 Intake Total 1579 / 1579 2484 / 2484 Balance 1579 / 1579 2484 / 2484 Laboratory Tests Past 24 Hrs 02/08/18 02/09/18 18:00 04:44 Sodium 140 Potassium 4.0 Chloride 110 H Carbon Dioxide 20.0 L Anion Gap 10 BUN 13 Creatinine 1.52 H Estim Creat Clear Calc 46.03 Est GFR (MDRD) Af Amer 58 L Est GFR (MDRD) Non-Af 48 L BUN/Creatinine Ratio 8.6 L Glucose 116 H Calcium 8.0 L Phosphorus 2.8 Magnesium 1.1 L Troponin I 0.855 H* POC Glucose 02/09/18 02/09/18 02/09/18 16:31 11:52 06:45 POC Glucose 111 H 288 H 135 H 02/08/18 22:15 POC Glucose 134 H Medical Necessity - Tobacco Use Smoking Status: Former smoker Tobacco Use: Non-smoker Assessment/Plan All Active Problems Chest pain (Acute) Saddle embolism of pulmonary artery (Acute) #1 Large pulmonary embolism-again patient was placed on Xarelto today, I will repeat his BMP tomorrow #2 Possible [id number] has no complaints of any chest pain today and appears hemodynamically stable, I will discuss his care with cardiology tomorrow #3 type 2 diabetes-patient's blood sugars will be monitored by fingerstick and sliding scale insulin will be administered #4 elevated creatinine-patient's creatinine has dropped from yesterday, I will continue IV fluids at a lower rate and repeat the BMP tomorrow #5 history of coronary artery disease with stent placement approximately 10 years ago #6 hyperlipidemia #7 essential hypertension Patient currently appears hemodynamically stable at this time Code Visit Inpatient E&M: 59636 Subs Hosp L2
[2018-02-09] MEDS: 0.9% Normal Saline 1,000 ML 75 ML IV (22:05)
[2018-02-09] MEDS: Atorvastatin Calcium 80 MG Tablet PO (22:05)
[2018-02-09] MEDS: Doxazosin 1 MG Tablet 2 MG PO (22:05)
[2018-02-09] MEDS: Metoprolol Tartrate 25 MG Tablet PO (22:07)
[2018-02-09 22:20] LABS: Bedside Glucose 205 mg/dL (70-110)
[2018-02-10] VITALS (11 sets, daily range): BP systolic 127–146; BP diastolic 78–85; PULSE 36–84; RESP 18–20; TEMP 36.5–36.7; O2SAT 88–96
[2018-02-10 06:30] LABS: Anion Gap 9 (5-15); BUN 8 mg/dL (7-18); BUN/Creat Ratio 6.7 RATIO (10-20); Chloride 112 mmol/L (98-107); EST Glomerular Filtration Rate 63 mL/min (>60); Est Glom Filt Rate - Afr Amer 77 mL/min (>60); Glucose 133 mg/dL (74-106); Magnesium 1.5 mg/dL (1.6-2.6); Potassium 4.2 mmol/L (3.5-5.1); Sodium Level 142 mmol/L (136-145)
[2018-02-10 06:50] LABS: Bedside Glucose 144 mg/dL (70-110)
--- NOTE | 2018-02-10 07:45 | PN_ITS ---
Patient Problems: Active and Suspected Problems Chest pain (Acute) Saddle embolism of pulmonary artery (Acute) Subjective: Patient did well overnight. Patient denies any bleeding complications. Patient reports subjective improvement in overall condition and states that he feels he has more energy today. Patient did report some mild unsteadiness with initial ambulation, but states it improved with effort. - Physical Exam General: Alert, Oriented x3, Cooperative, No apparent distress, Well developed, Well nourished, - - Obese. Speaking in full sentences. HEENT: Atraumatic, PERRLA, EOMI, Normocephalic, - - No scleral icterus or injection noted. Oral: Moist Mucosa, No Gingival or Mucosal Lesions/ Ulcerations Neck: Supple, No JVD, No Nodes, Trachea Midline Lungs: Clear to auscultation, Normal air movement, No rhonchi, No wheeze, No rales Cardiovascular: Regular rate, Regular Rhythm, Normal S1, Normal S2, No murmurs, No rub noted, No Gallop Abdomen: Bowel Sounds Present, Soft, Non Tender, Non-Distended, Obese Extremities: No clubbing, No cyanosis, No edema, Capillary Refill Less than 3 Seconds Skin: No rashes, No breakdown Musculoskeletal: No Tenderness to Palpation of Joints or Extremities Lymphatic: No Cervical, Supraclavicular, or Inguinal Adenopathy Neurological: Cranial nerves II-XII grossly intact, Neuro grossly intact, Motor Exam 5/5 strength throughout Psych/Mental Status: Alert and oriented to time, place, person, mood and affect Vital Signs Temp Pulse Resp BP Pulse Ox 36.7 C 77 18 127/80 H 95 02/10/18 04:10 02/10/18 04:10 02/10/18 04:10 02/10/18 04:10 02/10/18 06:48 Oxygen Flow Rate (L/min) [ 2 AMBULATION with Oxygen] Oxygen Flow Rate (L/min) 2 Oxygen Delivery Method Room Air Weight: 100.2 kg Body Mass Index (BMI) 31.6 Intake and Output for Last 24 Hours 02/08/18 02/09/18 02/10/18 23:59 23:59 23:59 Intake Total 1579 / 1579 4383 / 4383 50 / 50 Balance 1579 / 1579 4383 / 4383 50 / 50 Laboratory Tests Past 24 Hrs 02/10/18 05:40 Sodium 142 Potassium 4.2 Chloride 112 H Carbon Dioxide 21.0 Anion Gap 9 BUN 8 Creatinine 1.20 Estim Creat Clear Calc 58.30 Est GFR (MDRD) Af Amer 77 Est GFR (MDRD) Non-Af 63 BUN/Creatinine Ratio 6.7 L Glucose 133 H Calcium 8.0 L Magnesium 1.5 L POC Glucose 02/10/18 02/09/18 02/09/18 06:34 22:03 16:31 POC Glucose 144 H 205 H 111 H 02/09/18 11:52 POC Glucose 288 H Medical Necessity - Tobacco Use Smoking Status: Former smoker Tobacco Use: Non-smoker Assessment/Plan All Active Problems Chest pain (Acute) Saddle embolism of pulmonary artery (Acute) RECOMMENDATIONS: 1. Continue Lovenox therapy 2. Await echocardiogram 3. Ordered walking oximetry prior to discharge 4. Prefer discharge on Eliquis therapy 5. Probable discharge later today after completion of walking oximetry and echocardiogram IMPRESSIONS: 1. Acute hypoxic respiratory insufficiency secondary to saddle PE Patient currently on 2 L nasal cannula oxygen. Patient with extensive clot burden on CT scan of the chest, but appears to be tolerating this well. Patient does have an elevation in troponin, likely secondary to supply demand mismatch. Echocardiogram to evaluate for right heart strain has been ordered, but not completed at this time. Patient can be discharged if able to ambulate on room air. If patient is found to have right heart strain, follow-up in 2 we eks with nurse practitioner would be indicated. However, if no heart strain is noted, patient can likely follow-up in 4-6 weeks with nurse practitioner. Patient will need 6 months of anticoagulation. 2. Non-ST elevation NV Patient was slightly elevated troponin, but no significant EKG changes. Clinical suspicion for supply demand mismatch, but patient does have a history of coronary artery disease with a stent approximately 10 years ago. Patient is currently on Lovenox therapy. Defer to hospitalist on whether cardiology needs to get involved. Await results of echocardiogram 3. Obesity/advanced age/diabetes/GERD/hypertension/acute kidney injury Complicates care, management, recovery and prognosis. Likely okay to continue with baseline medications. Monitor blood sugars as these can be elevated secondary to adrenal response. Creatinine continues to improve. Code Visit Inpatient E&M: 09033 Subs Hosp L2
[2018-02-10] MEDS: Aspirin E.C. 81 MG Tablet PO (08:57)
[2018-02-10] MEDS: Rivaroxaban 15 MG Tablet PO ×2 (08:58→16:18)
[2018-02-10] MEDS: Fenofibrate 145 MG Tablet PO (08:58)
[2018-02-10] MEDS: Pantoprazole Sodium 40 MG Tablet PO (08:58)
[2018-02-10] MEDS: Lisinopril 40 MG Tablet PO (08:58)
[2018-02-10] MEDS: Glucerna Shake 120 ML LIQUID PO ×2 (09:04→11:56)
[2018-02-10] MEDS: Lactulose 20 GM/30 ML UDC 30 GM PO (09:56)
[2018-02-10 11:25] LABS: Bedside Glucose 206 mg/dL (70-110)
[2018-02-10] MEDS: Insulin Lispro 100 UNIT/ML INSULN.PEN SC (11:57)
--- NOTE | 2018-02-10 13:04 | CASEMGMT ---
UMANG VELASCO Assessment complete. See Link -Intro role of CM to patient and his . Pt is on Xarelto. Hawley checked with [employer]. If pt uses in-network pharmacy then cost for Xarelto or Eliquis would be $29.10, no prior authorization is required. Per [employer] website- [facility]'s pharmacy ([facility] is In-Network. -Denies needs @ home. Family is able to provide transportation and assistance if needed. -Update given to UMANG Soto CM. -Xarelto savings card given to pt and explained. -Ina BOWERSN RN ACM
--- NOTE | 2018-02-10 13:14 | CASEMGMT ---
Per Chrissy HECK, pt does not qualify for home oxygen at this time. Abdullahi HECK CM
--- NOTE | 2018-02-10 16:36 | PCM.DC ---
- Discharge Diagnoses Current Active Problems: Current Active and Chronic Problems Chest pain (Acute) Saddle embolism of pulmonary artery (Acute) Obesity (BMI 30.0-34.9) (Chronic) Diabetes mellitus (Chronic) GERD (gastroesophageal reflux disease) (Chronic) Hypertension (Chronic) You will use the following diet at home:: Calorie/Carbohydrate Controlled (specify 1200, 1400, etc) - 1800 prudencio Your food should be the consistency of: Regular Your liquids should be the consistency of: Regular/Thin Discharge Activity: Return to Normal Activity Weight Bearing Status: Full weight bearing Allergies/Adverse Reactions: Allergies No Known Allergies Allergy (Verified 02/08/18 11:54) Medications to take at Discharge Doxazosin Mesylate 2 mg PO QHS 02/08/18 Fenofibrate Nanocrystallized [Fenofibrate] 160 mg PO DAILY 02/08/18 Glimepiride [Amaryl] 6 mg PO DAILY 02/08/18 Liraglutide [Victoza] 1.8 mg SQ DAILY 02/08/18 Lisinopril [Zestril] 40 mg PO DAILY 02/08/18 Metformin HCl 1,000 mg PO BID 02/08/18 Pantoprazole Sodium [Protonix] 40 mg PO BID 02/08/18 Rosuvastatin Calcium [Crestor] 40 mg PO QHS 02/08/18 Aspirin E.C. [Ecotrin] 81 mg PO DAILY@0800 tablet 02/10/18 Rivaroxaban [Xarelto] 15 mg PO BIDCM tablet 02/10/18 Primary Care Physician: [facility] Doctor,Out of [Primary Care Provider] - Please follow up with your Primary Care Physician in: in 2-3 weeks Test Results: Test results from this visit will be discussed in further detail at your follow-up appointment, if applicable. Please Follow Up With: Delta Fu MD When: in 2 weeks Please Follow Up With: your sister superior as directed
--- NOTE | 2018-02-10 16:39 | DCINST_ITS ---
- Discharge Diagnoses Current Active Problems: Current Active and Chronic Problems Chest pain (Acute) Saddle embolism of pulmonary artery (Acute) Obesity (BMI 30.0-34.9) (Chronic) Diabetes mellitus (Chronic) GERD (gastroesophageal reflux disease) (Chronic) Hypertension (Chronic) You will use the following diet at home:: Calorie/Carbohydrate Controlled ( specify 1200, 1400, etc) - 1800 prudencio Your food should be the consistency of: Regular Your liquids should be the consistency of: Regular/Thin Discharge Activity: Return to Normal Activity Weight Bearing Status: Full weight bearing Allergies/Adverse Reactions: Allergies No Known Allergies Allergy (Verified 02/08/18 11:54) Medications to take at Discharge Doxazosin Mesylate 2 mg PO QHS 02/08/18 Fenofibrate Nanocrystallized [Fenofibrate] 160 mg PO DAILY 02/08/18 Glimepiride [Amaryl] 6 mg PO DAILY 02/08/18 Liraglutide [Victoza] 1.8 mg SQ DAILY 02/08/18 Lisinopril [Zestril] 40 mg PO DAILY 02/08/18 Metformin HCl 1,000 mg PO BID 02/08/18 Pantoprazole Sodium [Protonix] 40 mg PO BID 02/08/18 Rosuvastatin Calcium [Crestor] 40 mg PO QHS 02/08/18 Aspirin E.C. [Ecotrin] 81 mg PO DAILY@0800 tablet 02/10/18 Rivaroxaban [Xarelto] 15 mg PO BIDCM tablet 02/10/18 Primary Care Physician: [facility] Doctor,Out of [Primary Care Provider] - Please follow up with your Primary Care Physician in: in 2-3 weeks Test Results: Test results from this visit will be discussed in further detail at your follow- up appointment, if applicable. Please Follow Up With: Delta Fu MD When: in 2 weeks Please Follow Up With: your naphthalene operator helper as directed
--- NOTE | 2018-02-12 10:15 | PCM.DC.SUM ---
Discharge Date and Diagnosis Date of Admission: 02/08/18 Date of Discharge: 02/10/18 - Primary Discharge Diagnosis #1 large bilateral pulmonary embolism #2 type 2 diabetes #3 dehydration #4 history of coronary artery disease No evidence for diagnosis of non-STEMI - Secondary Discharge Diagnosis Chronic Problems Obesity (BMI 30.0-34.9) (Chronic) Diabetes mellitus (Chronic) GERD (gastroesophageal reflux disease) (Chronic) Hypertension (Chronic) Hospital Course and Treatment Operations: None Procedures: 2-D Echocardiogram, - - Venous duplex scan of the legs Summary of Care Provided: The patient is a 73 year old M who was seen in the emergency room at [facility] with chief complaint of precordial chest pain. Workup in the emergency room included cardiac enzymes which were elevated, EKG which showed a sinus tachycardia with no evidence of ischemic changes, a chest x-ray which was unremarkable, an elevated creatinine at 1.81, and elevated glucose of 388, and an elevated d-dimer which was 2.81. Patient's chest pain resolved in the emergency room without any treatment, he was not hypoxic. Patient was admitted to PCU for possible STEMI but due to his elevated d-dimer, a CTA was obtained shortly after his admission to the floor. The CTA revealed a large pulmonary emboli encompassing both lungs and a saddle embolus. Patient was given Lovenox subcu initially, he was seen in consultation by pulmonary medicine, cardiac enzymes that were cycled trended upward, this was not believed by this examiner to indicate a non-STEMI but rather the elevation of troponin was secondary to his large pulmonary embolus. Patient underwent an echocardiogram on 02/10/18 which showed evidence of right ventricular strain. Patient had a duplex scan of both legs which showed no evidence of DVT. Patient was switched to Xarelto as his anticoagulant and he did not require oxygen at the time of discharge and there were no major complications with the patient's hospitalization. On 02/10/18, patient was seen and examined and felt to be in stable condition for discharge home, he was to follow-up with pulmonary medicine as an outpatient. Discharge Activity: Return to Normal Activity Weight Bearing Status: Full weight bearing Home Medications: Medications to take at Discharge Doxazosin Mesylate 2 mg PO QHS 02/08/18 Fenofibrate Nanocrystallized [Fenofibrate] 160 mg PO DAILY 02/08/18 Glimepiride [Amaryl] 6 mg PO DAILY 02/08/18 Liraglutide [Victoza] 1.8 mg SQ DAILY 02/08/18 Lisinopril [Zestril] 40 mg PO DAILY 02/08/18 Metformin HCl 1,000 mg PO BID 02/08/18 Pantoprazole Sodium [Protonix] 40 mg PO BID 02/08/18 Rosuvastatin Calcium [Crestor] 40 mg PO QHS 02/08/18 Aspirin E.C. [Ecotrin] 81 mg PO DAILY@0800 tablet 02/10/18 Rivaroxaban [Xarelto] 15 mg PO BIDCM tablet 02/10/18 Primary Care Physician: [facility] Doctor,Out of [NON-STAFF] - Please follow up with your Primary Care Physician in: in 2-3 weeks Please Follow Up With: Delta Fu MD When: in 2 weeks Please Follow Up With: your director operations broadcast as directed Disposition: Home Minutes spent on discharge:: 32 Patient Condition:: Stable Medical Necessity - Tobacco Use Smoking Status: Former smoker Tobacco Use: Non-smoker Meaningful Use Info Meaningful Use Diagnoses (Choose all that apply): VTE - VTE Anticoag overlap given w/in hospital stay or rx'd at dc?: No Pt receive overlap for 5 days?: No Reason overlap not ordered, prescribed, or given for 5 days: Treatment Not Indicated Code Visit Inpatient E&M: 27671 Disch Hosp
--- NOTE | 2018-02-12 10:22 | DS.PCM_ITS ---
Discharge Date and Diagnosis Date of Admission: 02/08/18 Date of Discharge: 02/10/18 - Primary Discharge Diagnosis #1 large bilateral pulmonary embolism #2 type 2 diabetes #3 dehydration #4 history of coronary artery disease No evidence for diagnosis of non-STEMI - Secondary Discharge Diagnosis Chronic Problems Obesity (BMI 30.0-34.9) (Chronic) Diabetes mellitus (Chronic) GERD (gastroesophageal reflux disease) (Chronic) Hypertension (Chronic) Hospital Course and Treatment Operations: None Procedures: 2-D Echocardiogram, - - Venous duplex scan of the legs Summary of Care Provided: The patient is a 73 year old M who was seen in the emergency room at [facility] with chief complaint of precordial chest pain. Workup in the [facility] room included cardiac enzymes which were elevated, EKG which showed a sinus tachycardia with no evidence of ischemic changes, a chest x-ray which was unremarkable, an elevated creatinine at 1.81, and elevated glucose of 388, and an elevated d-dimer which was 2.81. Patient's chest pain resolved in the emergency room without any treatment, he was not hypoxic. Patient was admitted to PCU for possible STEMI but due to his elevated d-dimer, a CTA was obtained shortly after his admission to the floor. The CTA revealed a large pulmonary emboli encompassing both lungs and a saddle embolus. Patient was given Lovenox subcu initially, he was seen in consultation by pulmonary medicine, cardiac enzymes that were cycled trended upward, this was not believed by this examiner to indicate a non-STEMI but rather the elevation of troponin was secondary to his large pulmonary embolus. Patient underwent an echocardiogram on 02/10/18 which showed evidence of right ventricular strain. Patient had a duplex scan of both legs which showed no evidence of DVT. Patient was switched to Xarelto as his anticoagulant and he did not require oxygen at the time of discharge and there were no major complications with the patient's hospitalization. On 02/10/18, patient was seen and examined and felt to be in stable condition for discharge home, he was to follow-up with pulmonary medicine as an outpatient. Discharge Activity: Return to Normal Activity Weight Bearing Status: Full weight bearing Home Medications: Medications to take at Discharge Doxazosin Mesylate 2 mg PO QHS 02/08/18 Fenofibrate Nanocrystallized [Fenofibrate] 160 mg PO DAILY 02/08/18 Glimepiride [Amaryl] 6 mg PO DAILY 02/08/18 Liraglutide [Victoza] 1.8 mg SQ DAILY 02/08/18 Lisinopril [Zestril] 40 mg PO DAILY 02/08/18 Metformin HCl 1,000 mg PO BID 02/08/18 Pantoprazole Sodium [Protonix] 40 mg PO BID 02/08/18 Rosuvastatin Calcium [Crestor] 40 mg PO QHS 02/08/18 Aspirin E.C. [Ecotrin] 81 mg PO DAILY@0800 tablet 02/10/18 Rivaroxaban [Xarelto] 15 mg PO BIDCM tablet 02/10/18 Primary Care Physician: [facility] Doctor,Out of [NON-STAFF] - Please follow up with your Primary Care Physician in: in 2-3 weeks Please Follow Up With: Delta Fu MD When: in 2 weeks Please Follow Up With: your dozer operator as directed Disposition: Home Minutes spent on discharge:: 32 Patient Condition:: Stable Medical Necessity - Tobacco Use Smoking Status: Former smoker Tobacco Use: Non-smoker Meaningful Use Info Meaningful Use Diagnoses (Choose all that apply): VTE - VTE Anticoag overlap given w/in hospital stay or rx'd at dc?: No Pt receive overlap for 5 days?: No Reason overlap not ordered, prescribed, or given for 5 days: Treatment Not Indicated Code Visit Inpatient E&M: 00635 Disch Hosp
== END 2018-02-10 17:03 | disposition home or self-care (01) | DRG 176 ==
LOC: ED 12:15 → PCU 13:52
PROVIDERS: Family Medicine; Admitting Provider Internal Medicine; Emergency Provider Emergency Medicine; Family Provider Family Medicine; PCP Family Medicine; Referring Provider Internal Medicine; Visit Provider Internal Medicine
DX: I26.92 Saddle embolus of pulmonary artery without acute cor pulmonale (principal); E11.9 Type 2 diabetes mellitus without complications; I25.10 Atherosclerotic heart disease of native coronary artery without angina pectoris; E78.5 Hyperlipidemia, unspecified; I10 Essential (primary) hypertension; R09.02 Hypoxemia; R06.89 Other abnormalities of breathing; Z23 Encounter for immunization; E66.9 Obesity, unspecified; Z68.31 Body mass index [BMI] 31.0-31.9, adult; Z95.5 Presence of coronary angioplasty implant and graft; Z82.49 Family history of ischemic heart disease and other diseases of the circulatory system; Z87.891 Personal history of nicotine dependence; E86.0 Dehydration; K21.9 Gastro-esophageal reflux disease without esophagitis; Z79.84 Long term (current) use of oral hypoglycemic drugs
CPT/HCPCS: 36415; 71045; 71275; 80048; 82962; 83735; 84100; 84484; 85025; 85379; 93005; 93306; 93970; 97802; 99285; J7030; Q9967; 90686; A4216

== ENCOUNTER → 2018-05-02 08:56 | Outpatient (CLI) | payer MEDICARE, SELFPAY ==
[2018-02-26 10:11] VITALS: BMI 32.0
[2018-05-02 09:21] VITALS: PULSE 103; PULSE 104; PULSE 106; PULSE 109; PULSE 111; PULSE 87; PULSE 89; O2SAT 96; O2SAT 97
--- NOTE | 2018-05-02 15:24 | PCM.PSN.6M ---
PSN 6 Minute Walk Test - 6 Minute Walk Test 6 Minute Walk Test: 6 Minute Walk Test PSN:6-Minute Walk Test Start: 05/02/18 09:21 Freq: Status: Active Protocol: [id number] Document 05/02/18 09:21 LOY (Rec: 05/02/18 09:23 LOY [id number]) 6 Minute Walk Test Date Performed 05/02/18 Time Performed 09:00 Height 5 ft 10 in Weight: 95.254 kg Weight in Pounds 210.[address]: Delta Fu Assistive device used: None Pre-test Oxygen Delivery Method Room Air Pulse Ox (%) 96 Pulse Rate (60-100 beats/min) 87 Dyspnea Ellen Scale (0-10) 0 Exertion Ellen Scale (6-20) 6 1st minute Oxygen Delivery Method Room Air Pulse Ox (%) 97 Pulse Rate (60-100 beats/min) 103 H 2nd minute Oxygen Delivery Method Room Air Pulse Ox (%) 96 Pulse Rate (60-100 beats/min) 104 H 3rd minute Oxygen Delivery Method Room Air Pulse Ox (%) 97 Pulse Rate (60-100 beats/min) 106 H 4th minute Oxygen Delivery Method Room Air Pulse Ox (%) 96 Pulse Rate (60-100 beats/min) 106 H 5th minute Oxygen Delivery Method Room Air Pulse Ox (%) 96 Pulse Rate (60-100 beats/min) 109 H 6th minute Oxygen Delivery Method Room Air Pulse Ox (%) 97 Pulse Rate (60-100 beats/min) 111 H Dyspnea Ellen Scale (0-10) 0 Exertion Ellen Scale (6-20) 11 Post-test Oxygen Delivery Method Room Air Pulse Ox (%) 97 Pulse Rate (60-100 beats/min) 89 Full Laps Walked 16 Partial Lap, Number of Tiles Walked 32 Total Distance Walked (ft) 976 - Interpretation Interpretation: The patient was able to ambulate 976 feet over the course of 6 minutes on room air with no assistive devices or breaks. The patient experienced no significant desaturation, but did have a peak heart rate of 111 bpm. These findings are consistent with deconditioning. - Recommendations Recommendations: No supplemental oxygen is indicated at this time.
--- OUTSIDE RECORDS SUMMARY | 2018-06-17 22:03 | XMS RPT_ITS ---
:1945 Author Organization OHIP Support Name Relationship Address Phone JOHNNIE THOMPSONARA Unavailable [address] [address] + [place] [address] R Unavailable Unavailable Unavailable JOHNNIE THOMPSONARA Unavailable [address] [facility] [address] + [place] [address] R Unavailable Unavailable Unavailable JOHNNIE THOMPSONARA Unavailable [address] [facility] [address] + [place] [address] R Unavailable Unavailable Unavailable JAY BRETT Unavailable [address] [facility] [address] + [place] [address] R Unavailable Unavailable Unavailable BRETT THOMPSON Unavailable [address] [address] + [place] [address] R Unavailable Unavailable Unavailable R Unavailable Unavailable Unavailable R Unavailable Unavailable Unavailable R Unavailable Unavailable Unavailable BRETT THOMPSON Unavailable Unavailable + R Unavailable Unavailable Unavailable BRETT THOMPSON Unavailable Unavailable + R Unavailable Unavailable Unavailable BRETT THOMPSON Unavailable Unavailable + R Unavailable Unavailable Unavailable BRETT THOMPSON Unavailable Unavailable + R Unavailable Unavailable Unavailable R Unavailable Unavailable Unavailable R Unavailable Unavailable Unavailable R Unavailable Unavailable Unavailable JAY BRETT Unavailable Unavailable + ~[phone] BRETT THOMPSON Unavailable Unavailable + ~[phone] Care Team Providers Name Role Phone SHEY ORTIZ, DR. SAM Castro Attending Unavailable KARTHIK ORTIZ, DR. LIO Rodriguez Primary Care Unavailable SHEY ORTIZ, DR. SAM Castro Attending Unavailable KARTHIK ORTIZ, DR. LIO Rodriguez Primary Care Unavailable Frances Carvalho Attending Unavailable Frances Carvalho Referring Unavailable GENE ANGELES Primary Care Unavailable Tank, Delta Attending Unavailable Tank, Delta Referring Unavailable Tereletsky, Nghia Admitting Unavailable Tereletsky, Nghia Attending Unavailable Tereletsky, Nghia Referring Unavailable Tank, Delta Consulting Unavailable [facility] Unavailable Tereletsky, Nghia Admitting Unavailable Tereletsky, Nghia Attending Unavailable Tereletsky, Nghia Referring Unavailable , VICKY Primary Care Unavailable Tereletsky, Nghia Consulting Unavailable Jah Moody D.O. Attending Unavailable Maia, Frances Referring Unavailable Tank, Delta Attending Unavailable Gene Angeles Referring Unavailable Tereletsky, Nghia Admitting Unavailable Tereletsky, Nghia Attending Unavailable Tereletsky, Nghia Referring Unavailable , VICKY Primary Care Unavailable Tank, Delta Consulting Unavailable Tereletsky, Nghia Consulting Unavailable Tereletsky, Nghia Admitting Unavailable Tereletsky, Nghia Attending Unavailable Tereletsky, Nghia Referring Unavailable Karthik Gene Primary Care Unavailable Tank, Delta Consulting Unavailable Tereletsky, Nghia Consulting Unavailable Maia, Frances Attending Unavailable DOCTOR, OUT OF TOWN Referring Unavailable Tank, Delta Attending Unavailable Tereletsky, Nghia Referring Unavailable Kelley, Thompson Attending Unavailable Tereletsky, Nghia Referring Unavailable Cebul, Allan Attending Unavailable Tereletsky, Nghia Referring Unavailable Kelley, Russ Attending Unavailable Tereletsky, Nghia Referring Unavailable Maia, Frances Attending Unavailable Maia, Frances Referring Unavailable KARTHIK GENE Primary Care Unavailable PROBLEMS PROBLEMS DATE TYPE CONDITION / CODE ATTENDING STATUS SOURCE 06/03/2018 Unknown I26.92 - Saddle Tank Delta Active [facility] embolus of pulmonary Community artery without acute Hospital cor pulmonale / Repository I26.92(ICD-10) 06/03/2018 Unknown E66.9 - Obesity, Delta Fu Active [facility] unspecified / Community E66.9(ICD-10) Hospital Repository 05/22/2018 Unknown R06.00 - Dyspnea, Jah Moody, Active [place] unspecified / D.O. Community R06.00(ICD-10) Hospital Repository 03/13/2018 Unknown I10 - Essential Kelley, Russ Active [place] (primary) hypertension Community / I10(ICD-10) Hospital Repository 03/13/2018 Unknown R94.31 - Abnormal Kelley, Thompson Active [facility] electrocardiogram Community [ECG] [EKG] / Hospital R94.31(ICD-10) Repository 03/13/2018 Unknown I25.10 - Kelley, Russ Active [facility] Atherosclerotic heart Community disease of [facility] coronary artery Repository without angina pectoris / I25.10(ICD-10) 02/17/2018 Unknown I21.4 - Non-ST Tereletsky, Active [facility] elevation (NSTEMI) [facility] myocardial infarction Hospital / I21.4(ICD-10) Repository 03/04/2018 Unknown I26.99 - Other TankDelta pack Active [place] pulmonary embolism Community without acute cor Hospital pulmonale / Repository I26.99(ICD-10) 03/04/2018 Unknown J96.01 - Acute TankDelta pack Active [facility] respiratory failure Community with hypoxia / Hospital J96.01(ICD-10) Repository 03/04/2018 Unknown E11.9 - Type 2 TankDelta pack Active [facility] diabetes mellitus Community without complications Hospital / E11.9(ICD-10) Repository 03/04/2018 Unknown K21.9 - TankDelta pack Active [facility] Gastro-esophageal Community reflux disease without Hospital esophagitis / Repository K21.9(ICD-10) 03/04/2018 Unknown N17.9 - Acute kidney TankDelta pack Active [facility] failure, unspecified / Community N17.9(ICD-10) Hospital Repository 03/11/2018 Unknown J98.9 - Respiratory Cebul, Allan Active [facility] disorder, unspecified Community / J98.9(ICD-10) Hospital Repository PROCEDURES PROCEDURES No Procedure Records FoundRESULTS RESULTS PULMONARY VISIT REPORT Observed: 06/03/2018 Status: F Source: INDUSTRY 10:46 AM [facility] REPOSITORY [facility] Pulmonary Medicine of [address] [place] [address] OFFICE VISIT Date of Service: 06/03/18 MR#: [id number] Acct: [id number] Name: SYLVIA THOMPSON Jr. Rep #: [id number] : 1945 Provider: Delta Fu MD Age/Sex: 73/M Location: [facility] Status: Signed Assessment AND Plan Problems 1. Acute saddle pulmonary embolism without acute cor pulmonale I26.92 2. Obesity (BMI 30.0-34.9) E66.9 Plan Patient appears to be doing well at this time. Patient is not showing any signs or symptoms of pulmonary hypertension secondary to his acute PE. Did discuss with patient about cessation of anticoagulation, but after review of the risks, benefits and alternatives, patient would like to remain on anticoagulation to avoid any future complications. Patient will have a repeat pulmonary function test in 1 year to ensure stability. Will call with any future breathing issues. Obtain PFT in 1 year. Continue anticoagulation Orders Orders: [facility] 3 M FU: Chief Complaint: Reviewed test results Details: Patient is a 73-year-old male, currently under the care of Dr. Mcpherson, who presents for follow-up secondary to recent test results. Since last visit, patient denies any ER visits, hospitalizations or prednisone burst. Patient feels subjectively at his baseline. Patient reports he is not using any inhalers at this time. Patient has remained on anticoagulation and denies any bleeding complications such as epistaxis, hemoptysis, melena or hematochezia. Patient is denying any other side effects of the medications. Patient reports that he is back to his baseline exercise routine. Patient states he does actively swim and play racquetball. Patient is noted no change in his exercise tolerance. 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 Required: No Accompanied by: Self Is patient in pain?: No Allergies No Known Allergies Allergy (Verified 06/03/18 08:42) Medications Doxazosin Mesylate 2 mg PO QHS 02/08/18 [History Confirmed 06/03/18] Fenofibrate Nanocrystallized [Fenofibrate] 160 mg PO DAILY 02/08/18 [History Confirmed 06/03/18] Glimepiride [Amaryl] 6 mg PO DAILY 02/08/18 [History Confirmed 06/03/18] Liraglutide [Victoza] 1.8 mg SQ DAILY 02/08/18 [History Confirmed 06/03/18] Lisinopril [Zestril] 40 mg PO DAILY 02/08/18 [History Confirmed 06/03/18] Metformin HCl 1,000 mg PO BID 02/08/18 [History Confirmed 06/03/18] Pantoprazole Sodium [Protonix] 40 mg PO BID 02/08/18 [History Confirmed 06/03/18] Rosuvastatin Calcium [Crestor] 40 mg PO QHS 02/08/18 [History Confirmed 06/03/18] Aspirin E.C. [Ecotrin] 81 mg PO DAILY@0800 tab 02/10/18 [Rx Confirmed 06/03/18] rivaroxaban 20 mg tablet 20 mg PO DAILY #30 tab 03/25/18 [Rx Confirmed 06/03/18] PFSH Medical History Chest pain (Acute) Saddle embolism of pulmonary artery (Acute) Obesity (BMI 30.0-34.9) (Chronic) Diabetes mellitus (Chronic) GERD (gastroesophageal reflux disease) (Chronic) Hypertension (Chronic) Family History Mother Heart disease Social History Smoking Status: Former smoker how long ago did patient quit smokin, 2-4cig a week second hand exposure: Yes Review of Systems Const CONSTITUTIONAL: Negative anorexia, body ache, chills, daytime sleepiness, fever(s), night sweats, oral thrush, stops breathing during sleep, weight loss, sleeping in chair, fatigue, weight loss, weight gain, frequent colds, seasonal allergies, other, headache(s) or orthopnea EETM Ear Nose Throat Mouth: Positive hearing normal; negative hoarseness, dry mouth in morning, change in vision, itchy eyes, eye pain, swallowing Difficulty, ear pain, headache(s), mouth pain, nasal congestion, nasal discharge, sinus pain, sinus pressure, sore throat, other, hard of hearing, nose bleed or post nasal drip Cardio Cardiovascular: Negative chest pain, chest pain at rest, chest pain with activity, irregular heart rhythm, edema, shortness of breath when lying down, palpitations, other or murmur Resp Respiratory: Positive as per HPI; negative shortness of breath, pain with cough, wheezing, chest congestion, cough, chest tightness, pain on inspiration, inhalers, increase use of rescue inhalers, snoring, apnea or other Gastro Gastrointestional: Negative bloody stools, change in appetite, difficulty swallowing, reflux, hematemesis, melena stool, loose stool, constipation or other Genitourinary: Negative blood in urine, nocturia, pain with urination or other Musc Musculoskeletal: Negative body pain, back pain, neck pain or other Skin/Breast Skin/Breast: Negative dry skin, itching, unusual bruising, breast lump, other or rash Neuro Neurological: Negative restless legs, confusion, weakness or other Psych Psychocological: Negative abnormal sleep pattern, anxiety, thoughts of hurting self/others, hopelessness or other Lymph Lymphatic: Negative easy bleeding, easy bruising, other or swollen lymph nodes Exam Const Constitutional: Positive conversant, cooperative, in no acute respiratory distress, healthy appearing, well developed, well nourished, good hygiene and obese; negative smells of smoke, frail appearing or ill appearing Head Head: Positive normocephalic and atraumatic; negative cyanosis of lips/distal nose, frontal sinus tenderness or maxillary sinus tenderness Eyes Eye: Positive clear conjunctiva; negative nystagmus, scleral abnormality or cataract present Ears Ear: Positive hearing normal and external ears normal; negative hard of hearing Nose Nose: Positive external nose normal, septum normal and no nasal discharge; negative epistaxis or nasal polyp Mouth Mouth: Positive oral mucosae normal, no lesions and crowded posterior oropharynx; negative post nasal drip, malodorous breath or oral thrush present Mallampati Score: III: Mallampati Score Neck Neck: Positive normal visual inspection, full ROM and trachea midline; negative lymphadenopathy or JVD Chest Wall Chest: Positive normal inspection of the chest and symmetric chest movement; negative crepitus or tenderness Resp lung sounds: Positive clear to auscultation, good air exchange, normal expiratory time and normal respiratory effort; negative wheezes, rhonchi, rales, use of accessory muscles, wheeze present on forced exhalation or dullness to percussion Cardio Cardiac: Positive regular rate, regular rhythm, S1 normal and S2 normal; negative murmur, rub or gallop GI GI: Positive normal to inspection, normal bowel sounds and obese; negative distended, ascites or epigastric tenderness Genitourinary: Positive deferred Musc Musculoskeletal: Positive steady gait; negative using an assistive device for ambulation, kyphosis or scoliosis Skin Pulmonary Skin Exam: Positive intact; negative rash, lesion, ulcers, erythema or dermal atrophy Pulses Pulse: Yes radial pulses present Extremities Extremities: Yes capillary refill normal, No clubbing, No cyanosis, No edema, No stasis dermatitis Neuro Neurologic: Yes conversant, Yes no focal neuro deficits, Yes normal concentration, Yes understands questions, Yes cooperative, Yes normal cognition, Yes normal coordination Lymph Lymphatic: No lymphadenopathy Psych Appearance: Positive grossly normal Mental Status: Positive mental status grossly normal Mood: Positive congruent mood Affect: Positive normal affect Coding Level of Care Code Off vis,est,level 3 Diagnoses Acute saddle pulmonary embolism without acute cor pulmonale I26.92 Chronicity: acute Acute cor pulmonale presence: without acute cor pulmonale Obesity (BMI 30.0-34.9) E66.9 06/03/18 1046 <Electronically signed by Delta Fu MD> Date Delta Fu MD Cosigner Signature: Date (if applicable) CC: Gene Angeles DO PULMONARY FUNCTION Observed: 05/08/2018 Status: F Source: INDUSTRY TEST 2:53 PM [facility] REPOSITORY [facility] Pulmonary Services/Neurology [address] [place] [address] MR#: [id number] Acct: [id number] Name: SYLVIA THOMPSON Jr. Rep #: [id number] : 1945 73 From: Jah Moody DO Referring Dr: Frances Carvalho PSYCHIATRIST Status: REG CLI Ordering Dr: Date: Location: [facility] Sex: M C INTRODUCTION: The patient is a 73-year-old male that presents for pulmonary function testing secondary to a diagnosis of dyspnea. Respiratory therapy reports good patient effort. Bronchodilators were used during testing. INTERPRETATION: Forced expiration spirometry demonstrates no evidence of a large airways obstructive ventilatory defect. There was no significant response to aerosolized bronchodilators. Spirograms are of fair quality and plateau normally. Body plethysmography was performed and reveals lung volumes to be within normal limits. Diffusing capacity by single breath CO is also within normal limits at 83% of predicted. IMPRESSION: Grossly normal pulmonary function testing. 05/08/18 145 <Electronically signed by Jah Moody DO> Date Jah Moody DO CC: LIO ANGELES; Frances Carvalho Date Dictated: 05/08/181450 Date Transcribed: 05/08/181450 Bacteriologist Soil: DB Signed 6 MINUTE WALK TEST Observed: 05/03/2018 Status: F Source: INDUSTRY 5:48 AM [facility] REPOSITORY [facility] Pulmonary Services/Neurology [address] [place] [address] MR#: [id number] Acct: [id number] Name: SYLVIA THOMPSON Rep #: [id number] : 1945 73 From: Delta Fu MD Referring Dr: Frances Carvalho NP Date: Ordering Dr: Sex: M C Location: PSN PSN 6 Minute Walk Test - 6 Minute Walk Test 6 Minute Walk Test: 6 Minute Walk Test PSN:6-Minute Walk Test Start: 05/02/18 09:21 Freq: Status: Active Protocol: RESP.6MINW Document 05/02/18 09:21 RANJIT (Rec: 05/02/18 09:23 [id number]) 6 Minute Walk Test Date Performed 05/02/18 Time Performed 09:00 Height 5 ft 10 in Weight: 95.254 kg Weight in Pounds 210.[address]: Delta Fu Assistive device used: None Pre-test Oxygen Delivery Method Room Air Pulse Ox (%) 96 Pulse Rate (60-100 beats/min) 87 Dyspnea Ellen Scale (0-10) 0 Exertion Ellen Scale (6-20) 6 1st minute Oxygen Delivery Method Room Air Pulse Ox (%) 97 Pulse Rate (60-100 beats/min) 103 H 2nd minute Oxygen Delivery Method Room Air Pulse Ox (%) 96 Pulse Rate (60-100 beats/min) 104 H 3rd minute Oxygen Delivery Method Room Air Pulse Ox (%) 97 Pulse Rate (60-100 beats/min) 106 H 4th minute Oxygen Delivery Method Room Air Pulse Ox (%) 96 Pulse Rate (60-100 beats/min) 106 H 5th minute Oxygen Delivery Method Room Air Pulse Ox (%) 96 Pulse Rate (60-100 beats/min) 109 H 6th minute Oxygen Delivery Method Room Air Pulse Ox (%) 97 Pulse Rate (60-100 beats/min) 111 H Dyspnea Ellen Scale (0-10) 0 Exertion Ellen Scale (6-20) 11 Post-test Oxygen Delivery Method Room Air Pulse Ox (%) 97 Pulse Rate (60-100 beats/min) 89 Full Laps Walked 16 Partial Lap, Number of Tiles Walked 32 Total Distance Walked (ft) 976 - Interpretation Interpretation: The patient was able to ambulate 976 feet over the course of 6 minutes on room air with no assistive devices or breaks. The patient experienced no significant desaturation, but did have a peak heart rate of 111 bpm. These findings are consistent with deconditioning. - Recommendations Recommendations: No supplemental oxygen is indicated at this time. 05/03/18 0548 <Electronically signed by Delta Fu MD> Date Delta Fu MD CC: Date Dictated: 05/02/18 1524 Date Transcribed: 05/02/181523 Bacteriologist Soil: Delta Fu Signed PULMONARY VISIT REPORT Observed: 02/28/2018 Status: F Source: INDUSTRY 4:16 PM [facility] REPOSITORY Pulmonary Medicine [address] [place] [address] OFFICE VISIT Date of Service: 02/26/18 MR#: [id number] Acct: [id number] Name: SYLVIA THOMPSON Jr. Rep #: [id number] : 1945 Provider: Frances Carvalho Age/Sex: 73/M Location: [facility] Status: Signed Assessment AND Plan 1. Acute saddle pulmonary embolism without acute cor pulmonale I26.92 Plan New. Continue Eliquis. Baseline pulmonary function test, with attention given to diffusing lung capacity. Follow-up with Dr. Fu in the next 10 weeks to discuss test results. Contact the office with any new or worsening symptoms in the meantime. Obtaining a pulmonary stress test just to make sure that the patient does not experience hypoxia with ambulation up to 6 minutes. 2. Obesity (BMI 30.0-34.9) E66.9 Plan Encourage weight loss. Plan Detail Other Orders Orders: Follow Up 10 Weeks (BWA) [facility] f/u: Chief Complaint: None HPI Comments Details: This is a 73 year old very pleasant M, currently under the care of Gene Angeles, here to follow up after a recent hospitalization at [facility], from February 08 - February 10, 2018 for bilateral pulmonary embolism. The hospital stay was relatively uncomplicated given the severity of the saddle PE. 6 pages of hospital documentation was reviewed, and found to be significant for CTA of the chest completed on February 08 documenting saddle embolus spanning bifurcation of the right and left main pulmonary arteries with a large central PE in the distal main pulmonary artery bilateral which extended into all lobes of both lungs. Echocardiogram documented an EF of 50%, no diastolic dysfunction and a PA S/P estimated to be 28 mmHg, no cor pulmonale documented. Upon discharge, the patient transitioned from Lovenox to Eliquis. He also successfully completed a walking oximetry in the hospital which proved that he did not to experience hypoxia with ambulation. Today, he reports the office ambulatory and currently on room air. He is accompanied by his . He states that he has returned to baseline. He denies any shortness of breath, chest pain, chest heaviness, chest tightness or palpitations. He has not noted any signs of bleeding such as hematemesis, hemoptysis, hematochezia or melena stools. He is also denies hematuria. He denies any lower extremity edema. He denies any cough or sputum production. He also denies any fever, chills or body aches. He is not like currently on any inhalers. He is compliant with Eliquis twice daily. Intake Vital Signs02/26/18 Height 5 ft 10 in 02/26/18 Weight: 223 lb Intake Visit Reasons: hospital f/u Accompanied by: Allergies No Known Allergies Allergy (Verified 02/26/18 06:50) Medications Doxazosin Mesylate 2 mg PO QHS 02/08/18 [History Confirmed 02/26/18] Fenofibrate Nanocrystallized [Fenofibrate] 160 mg PO DAILY 02/08/18 [History Confirmed 02/26/18] Glimepiride [Amaryl] 6 mg PO DAILY 02/08/18 [History Confirmed 02/26/18] Liraglutide [Victoza] 1.8 mg SQ DAILY 02/08/18 [History Confirmed 02/26/18] Lisinopril [Zestril] 40 mg PO DAILY 02/08/18 [History Confirmed 02/26/18] Metformin HCl 1,000 mg PO BID 02/08/18 [History Confirmed 02/26/18] Pantoprazole Sodium [Protonix] 40 mg PO BID 02/08/18 [History Confirmed 02/26/18] Rosuvastatin Calcium [Crestor] 40 mg PO QHS 02/08/18 [History Confirmed 02/26/18] Aspirin E.C. [Ecotrin] 81 mg PO DAILY@0800 tab 02/10/18 [Rx Confirmed 02/26/18] Rivaroxaban [Xarelto] 15 mg PO BIDCM tab 02/10/18 [Rx Confirmed 02/26/18] PFSH Medical History Chest pain (Acute) Saddle embolism of pulmonary artery (Acute) Obesity (BMI 30.0-34.9) (Chronic) Diabetes mellitus (Chronic) GERD (gastroesophageal reflux disease) (Chronic) Hypertension (Chronic) Family History Mother Heart disease Social History Smoking Status: Former smoker how long ago did patient quit smokin, 2-4cig a week second hand exposure: Yes Review of Systems Const CONSTITUTIONAL: Negative anorexia, body ache, chills, daytime sleepiness, fever(s), night sweats, oral thrush, stops breathing during sleep, weight loss, sleeping in chair, fatigue, weight loss, weight gain, frequent colds, seasonal allergies, other, headache(s) or orthopnea EETM Ear Nose Throat Mouth: Positive hearing normal; negative hard of hearing, hoarseness, dry mouth in morning, change in vision, itchy eyes, eye pain, swallowing Difficulty, ear pain, nose bleed, headache(s), mouth pain, nasal congestion, nasal discharge, sinus pain, sinus pressure, sore throat or other Cardio Cardiovascular: Negative chest pain, chest pain at rest, chest pain with activity, irregular heart rhythm, edema, shortness of breath when lying down, palpitations, murmur or other Resp Respiratory: Positive as per HPI; negative shortness of breath, pain with cough, wheezing, chest congestion, cough, chest tightness, pain on inspiration, inhalers, increase use of rescue inhalers, snoring, apnea or other Gastro Gastrointestional: Negative bloody stools, change in appetite, difficulty swallowing, reflux, hematemesis, melena stool, loose stool, constipation or other Genitourinary: Negative blood in urine, nocturia, pain with urination or other Musc Musculoskeletal: Negative body pain, back pain, neck pain or other Skin/Breast Skin/Breast: Negative dry skin, itching, rash, unusual bruising, breast lump or other Neuro Neurological: Negative restless legs, confusion, weakness or other Psych Psychocological: Negative abnormal sleep pattern, anxiety, thoughts of hurting self/others, hopelessness or other Lymph Lymphatic: Negative easy bleeding, easy bruising, swollen lymph nodes or other Exam Const Constitutional: Positive conversant, cooperative, in no acute respiratory distress, healthy appearing, well developed, well nourished and good hygiene Head Head: Positive normocephalic and atraumatic; negative cyanosis of lips/distal nose Eyes Eye: Positive clear conjunctiva; negative nystagmus or scleral abnormality Ears Ear: Positive hearing normal and external ears normal; negative hard of hearing Nose Nose: Positive external nose normal and no nasal discharge; negative epistaxis Mouth Mouth: Positive oral mucosae normal and no lesions; negative malodorous breath or oral thrush present Neck Neck: Positive normal visual inspection, full ROM and trachea midline; negative lymphadenopathy, JVD or tender Chest Wall Chest: Positive normal inspection of the chest and symmetric chest movement; negative increased A/P diameter Resp lung sounds: Positive clear to auscultation, good air exchange, normal expiratory time and normal respiratory effort; negative diminished, wheezes, rhonchi, rales, dullness to percussion or wheeze present on forced exhalation Cardio Cardiac: Positive regular rate, regular rhythm, S1 normal and S2 normal; negative murmur GI GI: Positive normal to inspection; negative distended Genitourinary: Positive deferred Musc Musculoskeletal: Positive steady gait and ROM normal; negative kyphosis or scoliosis Skin Pulmonary Skin Exam: Positive intact; negative rash Pulses Pulse: Yes pulses normal x4 extremities Extremities Extremities: Yes capillary refill normal, No clubbing, No cyanosis, No edema Neuro Neurologic: Yes conversant, Yes no focal neuro deficits, Yes normal concentration, Yes understands questions, Yes cooperative, Yes normal cognition, Yes normal coordination Lymph Lymphatic: No lymphadenopathy, No tenderness, No cervical adenopathy Psych Appearance: Positive grossly normal, eye contact and well kempt Mental Status: Positive mental status grossly normal Mood: Positive congruent mood Affect: Positive normal affect Coding Level of Care Code Off vis,est,level 4 Diagnoses Acute saddle pulmonary embolism without acute cor pulmonale I26.92 Chronicity: acute Acute cor pulmonale presence: without acute cor pulmonale Obesity (BMI 30.0-34.9) E66.9 02/28/18 1616 <Electronically signed by Frances SMITH> Date Frances SMITH Cosigner Signature: Date (if applicable) CC: Gene Angeles DO 12 LEAD ELECTROCARDIOGRAM Observed: 02/14/2018 Status: F Source: INDUSTRY 2:37 PM [facility] REPOSITORY [facility] Cardiovascular Services [address] [place] [address]25 12 Lead EKG 02/09/18 0357 MR#: [id number] Acct: [id number] Name: JAYSYLVIA Jr. Rep #: [id number] : 1945 73 From: Lucho Sutton MD Attending Dr: Nghia Lopez DO Status: DIS IN Ordering Dr: Tay Carroll MD Date: 02/09/18 Location: [facility] Sex: M C Admitted: 02/08/18 Test Reason : RHY CHANGE Blood Pressure : / mmHG Vent. Rate : 079 BPM Atrial Rate : 038 BPM P-R Int : 000 ms QRS Dur : 090 ms QT Int : 426 ms P-R-T Axes : 000 063 -08 degrees QTc Int : 488 ms Accelerated Junctional rhythm with retrograde conduction Nonspecific T wave abnormality Prolonged QT Abnormal ECG When compared with ECG of 08-FEB-2018 11:30, MANUAL COMPARISON REQUIRED, DATA IS UNCONFIRMED Confirmed by HERMAN BROOKS, LUCHO ([id number]), avid editor KI GARRETT ([id number]) on 02/14/2018 2:37:30 PM Referred By: Nghia Lopez Confirmed By:LUCHO SUTTON MD 02/14/18 1437 Date Lucho Sutton MD CC: Gene Angeles DO; Nghia Lopez DO; Tay Carroll MD Signed DISCHARGE SUMMARY Observed: 02/12/2018 Status: F Source: INDUSTRY 10:27 AM [facility] REPOSITORY [facility] Medical Records Department [address] [place] [address] 0000[address] Discharge Summary 02/12/18 1015 MR#: [id number] Acct: [id number] Name: SYLVIA THOMPSON Rep #: [id number] : 1945 73 From: Nghia Lopez DO PCP: Gene Angeles DO Status: DIS IN Y Location: [place] [id number] Discharge Date and Diagnosis Date of Admission: 02/08/18 Date of Discharge: 02/10/18 - Primary Discharge Diagnosis #1 large bilateral pulmonary embolism #2 type 2 diabetes #3 dehydration #4 history of coronary artery disease No evidence for diagnosis of non-STEMI - Secondary Discharge Diagnosis Chronic Problems Obesity (BMI 30.0-34.9) (Chronic) Diabetes mellitus (Chronic) GERD (gastroesophageal reflux disease) (Chronic) Hypertension (Chronic) Hospital Course and Treatment Operations: None Procedures: 2-D Echocardiogram, - - Venous duplex scan of the legs Summary of Care Provided: The patient is a 73 year old M who was seen in the emergency room at [facility] with chief complaint of precordial chest pain. Workup in the emergency room included cardiac enzymes which were elevated, EKG which showed a sinus tachycardia with no evidence of ischemic changes, a chest x-ray which was unremarkable, an elevated creatinine at 1.81, and elevated glucose of 388, and an elevated d-dimer which was 2.81. Patient's chest pain resolved in the emergency room without any treatment, he was not hypoxic. Patient was admitted to PCU for possible STEMI but due to his elevated d-dimer, a CTA was obtained shortly after his admission to the floor. The CTA revealed a large pulmonary emboli encompassing both lungs and a saddle embolus. Patient was given Lovenox subcu initially, he was seen in consultation by pulmonary medicine, cardiac enzymes that were cycled trended upward, this was not believed by this examiner to indicate a non-STEMI but rather the elevation of troponin was secondary to his large pulmonary embolus. Patient underwent an echocardiogram on 02/10/18 which showed evidence of right ventricular strain. Patient had a duplex scan of both legs which showed no evidence of DVT. Patient was switched to Xarelto as his anticoagulant and he did not require oxygen at the time of discharge and there were no major complications with the patient's hospitalization. On 02/10/18, patient was seen and examined and felt to be in stable condition for discharge home, he was to follow-up with pulmonary medicine as an outpatient. Discharge Activity: Return to Normal Activity Weight Bearing Status: Full weight bearing Home Medications: Medications to take at Discharge Doxazosin Mesylate 2 mg PO QHS 02/08/18 Fenofibrate Nanocrystallized [Fenofibrate] 160 mg PO DAILY 02/08/18 Glimepiride [Amaryl] 6 mg PO DAILY 02/08/18 Liraglutide [Victoza] 1.8 mg SQ DAILY 02/08/18 Lisinopril [Zestril] 40 mg PO DAILY 02/08/18 Metformin HCl 1,000 mg PO BID 02/08/18 Pantoprazole Sodium [Protonix] 40 mg PO BID 02/08/18 Rosuvastatin Calcium [Crestor] 40 mg PO QHS 02/08/18 Aspirin E.C. [Ecotrin] 81 mg PO DAILY@0800 tablet 02/10/18 Rivaroxaban [Xarelto] 15 mg PO BIDCM tablet 02/10/18 Primary Care Physician: [facility] Doctor,Out of [NON-STAFF] - Please follow up with your Primary Care Physician in: in 2- 3 weeks Please Follow Up With: Delta Fu MD When: in 2 weeks Please Follow Up With: your grain scooper as directed Disposition: Home Minutes spent on discharge:: 32 Patient Condition:: Stable Medical Necessity - Tobacco Use Smoking Status: Former smoker Tobacco Use: Non-smoker Meaningful Use Info Meaningful Use Diagnoses (Choose all that apply): VTE - VTE Anticoag overlap given w/in hospital stay or rx'd at dc?: No Pt receive overlap for 5 days?: No Reason overlap not ordered, prescribed, or given for 5 days: Treatment Not Indicated Code Visit Inpatient E AND M: 53240 Disch Hosp 02/12/18 1027 <Electronically signed by Nghia Lopez DO> Date Nghia Lopez DO Cosigner Signature (if applicable): Date CC: Gene Angeles DO; Nghia Lopez DO Signed 12 LEAD ELECTROCARDIOGRAM Observed: 02/12/2018 Status: F Source: INDUSTRY 8:50 AM [facility] REPOSITORY [facility] Cardiovascular Services [address] [place] [address]920 12 Lead EKG 02/08/18 1130 MR#: [id number] Acct: [id number] Name: SYLVIA THOMPSON Rep #: [id number] : 1945 73 From: Russ Benson MD Attending Dr: Nghia Lopez DO Status: DIS IN Ordering Dr: Jo Littlejohn MD Date: 02/08/18 Location: [facility] Sex: M C Admitted: 02/08/18 Test Reason : CP Blood Pressure : / mmHG Vent. Rate : 135 BPM Atrial Rate : 135 BPM P-R Int : 226 ms QRS Dur : 088 ms QT Int : 174 ms P-R-T Axes : -12 062 193 degrees QTc Int : 261 ms Sinus tachycardia with 1st degree A-V block Nonspecific ST and T wave abnormality Abnormal ECG Confirmed by KELLEY BROOKS, RUSS ([id number]), avid editor KI GARRETT ([id number]) on 02/12/2018 8:50:27 AM Referred By: Nghia Lopez Confirmed By:RUSS BENSON MD 02/12/18 0850 Date Russ Benson MD CC: Gene Angeles DO; Jo Littlejohn MD; Nghia Lopez DO Signed DISCHARGE INSTRUCTION Observed: 02/10/2018 Status: F Source: KEEGAN 4:39 PM [facility] RE[facility] Medical Records Department [address] [place] [address] Instructions for Home/Discharge Instructions 02/10/18 1636 MR#: [id number] Acct: [id number] Name: SYLVIA THOMPSON Rep #: [id number] : 1945 73 From: Nghia Lopez DO PCP: OUT OF TOWN DOCTOR Status: ADM IN - Discharge Diagnoses Current Active Problems: Current Active and Chronic Problems Chest pain (Acute) Saddle embolism of pulmonary artery (Acute) Obesity (BMI 30.0-34.9) (Chronic) Diabetes mellitus (Chronic) GERD (gastroesophageal reflux disease) (Chronic) Hypertension (Chronic) You will use the following diet at home:: Calorie/Carbohydrate Controlled (specify 1200, 1400, etc) - 1800 prudencio Your food should be the consistency of: Regular Your liquids should be the consistency of: Regular/Thin Discharge Activity: Return to Normal Activity Weight Bearing Status: Full weight bearing Allergies/Adverse Reactions: Allergies No Known Allergies Allergy (Verified 02/08/18 11:54) Medications to take at Discharge Doxazosin Mesylate 2 mg PO QHS 02/08/18 Fenofibrate Nanocrystallized [Fenofibrate] 160 mg PO DAILY 02/08/18 Glimepiride [Amaryl] 6 mg PO DAILY 02/08/18 Liraglutide [Victoza] 1.8 mg SQ DAILY 02/08/18 Lisinopril [Zestril] 40 mg PO DAILY 02/08/18 Metformin HCl 1,000 mg PO BID 02/08/18 Pantoprazole Sodium [Protonix] 40 mg PO BID 02/08/18 Rosuvastatin Calcium [Crestor] 40 mg PO QHS 02/08/18 Aspirin E.C. [Ecotrin] 81 mg PO DAILY@0800 tablet 02/10/18 Rivaroxaban [Xarelto] 15 mg PO BIDCM tablet 02/10/18 Primary Care Physician: [facility] Doctor,Out of [Primary Care Provider] - Please follow up with your Primary Care Physician in: in 2- 3 weeks Test Results: Test results from this visit will be discussed in further detail at your follow-up appointment, if applicable. Please Follow Up With: Delta uF MD When: in 2 weeks Please Follow Up With: your grain scooper as directed 02/10/18 5267 <Electronically signed by Nghia Lopez DO> Date Nghia Loepz DO CC: Delta Fu MD; OUT OF [facility] DOCTOR VENOUS DUPLEX LOWER Observed: 02/10/2018 Status: F Source: INDUSTRY EXTREMITY 3:55 PM [facility] RE[facility] Cardiovascular Services [address] [place] [address] Venous Duplex US - Trace Extrem 02/10/18 08 MR#: [id number] Acct: [id number] Name: JAYSYLVIA Gerald Farrell Rep #: [id number] : 1945 73 From: Allan Bailey MD Attending Dr: Nghia Lopez DO Status: ADM IN Ordering Dr: Nghia Lopez DO Date: 02/09/18 Location: [facility] Sex: M C Admitted: 02/08/18 Reason For Study: PE RIGHT LEFT GSV is normal. GSV is normal. CFV is compressible, spontaneous, phasic, CFV is compressible, spontaneous, phasic, competent and demonstrates normal competent, and demonstrates normal augmentation. augmentation. FV is compressible, spontaneous, phasic, FV is compressible, spontaneous, phasic, competent and demonstrates normal competent and demonstrates normal augmentation. augmentation. POP V is compressible, spontaneous, phasic, POP V is compressible, spontaneous, phasic, competent and demonstrates normal competent and demonstrates normal augmentation. augmentation. T/P Trunk is compressible. T/P Trunk is compressible. PTV is compressible. PTV is compressible. RT PerV is compressible. LT PerV is compressible. Procedure Exam performed portable in patient room. A preliminary report was called and/or faxed to [facility]. Interpretation Summary No evidence for acute deep venous thrombosis bilateral lower extremities with patent and compressible bilateral great saphenous veins. Ordering Physician: Nghia Lopez Referring Physician: Nghia Lopez Performed By: Clary Cedillo RVT 02/10/18 1554 Date Allan Bailey MD CC: Nghia Lopez DO; OUT OF TOWN DOCTOR Date Dictated: 02/10/18824 Date Transcribed: 02/10/181553 Bacteriologist Soil: Signed ECHOCARDIOGRAM COMPLETE Observed: 02/10/2018 Status: F Source: INDUSTRY 1:45 PM [facility]ORY [facility] Cardiovascular Services [address] [place] [address] Echo Complete 02/10/18 1010 MR#: [id number] Acct: [id number] Name: SYLVIA THOMPSON Gerald Farrell Rep #: [id number] : 1945 73 From: Russ Benson MD Attending Dr: Nghia Lopez DO Status: ADM IN Ordering Dr: Nghia Lopez DO Date: 02/08/18 Location: [facility] Sex: M C Admitted: 02/08/18 Reason For Study: CHEST PAIN Procedure This was a 2D Doppler, Color Flow transthoracic echocardiogram. Exam performed portable in patient room. Left Ventricle Normal LV size. The estimated ejection fraction is 50 %. Diastolic function is indeterminate. No regional wall motion abnormalities noted. Right Ventricle Moderately dilated right ventricle. Mild to moderate global right ventricular systolic dysfunction. Atria The left atrium is mildly enlarged. Normal right atrium. Mitral Valve Normal mitral valve. Tricuspid Valve Normal tricuspid valve. Mild (1+) tricuspid valve insufficiency. Pulmonary artery systolic pressure is 28 mmHg. Aortic Valve The aortic valve is not well visualized. Pulmonic Valve The pulmonic valve is not well visualized. Great Vessels Mildly dilated aortic root. The pulmonary artery is normal size. Pericardium/Pleural No pericardial effusion. MMode/2D Measurements AND Calculations LVIDd: 5.1 cm IVSd: 0.87 cm Ao root diam: 3.6 cm LVIDs: 3.8 cm LVPWd: 0.95 cm LA dimension: 3.5 cm FS: 25.4 % LAV(MOD-bp): 59.1 ml LVAd ap4: 32.7 cm2 SV(MOD-sp4): 54.6 ml LAV(MOD-bp) Indexed: 27.2 ml/m2 EDV(MOD-sp4): 113.6 ml LAV(MOD-sp2): 53.3 ml EDV(sp4-el): 117.7 ml LAV(MOD-sp4): 63.8 ml LVAs ap4: 21.1 cm2 ESV(MOD-sp4): 59.0 ml ESV(sp4-el): 60.3 ml EF(MOD-sp4): 48.1 % EF(sp4-el): 48.8 % SV(sp4-el): 57.4 ml LA A4 area: 21.4 cm2 RA A4 area: 17.2 cm2 Doppler Measurements AND Calculations Ao V2 max: 96.8 cm/sec LV V1 max: 48.6 cm/sec PA V2 max: 60.5 cm/sec Ao max P.8 mmHg LV V1 max P.95 mmHg PI end-d isaac: 80.1 cm/sec TR max isaac: 244.5 cm/sec TR max P.0 mmHg Interpretation Summary Normal LV size. The estimated ejection fraction is 50 %. Diastolic function is indeterminate. Moderately dilated right ventricle. Mild to moderate global right ventricular systolic dysfunction. Mild (1+) tricuspid valve insufficiency. Ordering Physician: Nghia Lopez Performed By: Mame Armas, CELENACS, RVT 02/10/18 1345 Date Russ Benson MD CC: Nghia Lopez DO; OUT OF TOWN DOCTOR Date Dictated: 02/10/18 1010 Date Transcribed: 02/10/18 134 Bacteriologist Soil: Signed BEDSIDE GLUCOSE Collected: 02/10/2018 Status: F Source: KEEGAN 11:19 AM [facility] REPOSITORY TYPE CODE TESTS RESULT OUT OF REFERENCE UNITS RANGE LAB L501.080 70-110 mg/dL High BEDSIDE GLU 206 Result Comment: MANAGEMENT OF PATIENT CARE PER NURSING PROTOCOL Performed By: #### L501.080 #### [facility] Laboratory Point of Care [address] [place] [address] BEDSIDE GLUCOSE Collected: 02/10/2018 Status: F Source: KEEGAN 6:34 AM [facility] REPOSITORY TYPE CODE TESTS RESULT OUT OF REFERENCE UNITS RANGE LAB L501.080 70-110 mg/dL High BEDSIDE GLU 144 Result Comment: MANAGEMENT OF PATIENT CARE PER NURSING PROTOCOL Performed By: #### L501.080 #### [place] [facility] Laboratory Point of Care [address] [place] [address] BASIC METABOLIC Collected: 02/10/2018 Status: F Source: KEEGAN PROFILE (BMP) 5:40 AM [facility] REPOSITORY TYPE CODE TESTS RESULT OUT OF RANGE REFERENCE UNITS LAB L501.0100 74-106 mg/dL High GLU 133 Result Comment: Fasting Glucose result greater than or equal to 126 mg/dL suggests DIABETES MELLITUS per A.D.A. criteria. Please note revised GLUCOSE reference range effective 2017. LAB L501.1000 7-18 mg/dL Normal BUN 8 LAB L501.1100 0.70-1.30 mg/dL Normal CREAT,SERUM 1.20 Result Comment: The validity of the calculated GFR AND GFRAA in patients over 70 years has not been determined. Clinical correlation is essential. LAB L501.1110 >60 mL/min Normal EST GFR 63 Result Comment: Non- GFR Calc LAB L501.1115 >60 mL/min Normal EST GFR - AA 77 Result Comment: GFR Calc LAB L501.1255 ml/min Normal Estimated CRCL 58.30 LAB L501.1300 10-20 RATIO Low BUN/CRE 6.7 LAB L501.2200 8.5-10 mg/dL Low .1 CA 8.0 LAB L501.5300 136-14 mmol/L Normal 5 NA 142 LAB L501.5600 3.5-5. mmol/L Normal 1 K 4.2 LAB L501.5900 98-107 mmol/L High CL 112 LAB L501.6100 21.0-3 mmol/L Normal 2.0 CO2 21.0 LAB L501.6200 5-15 Normal GAP 9 Performed By: #### L500.2500, L501.5200 #### [facility] [address] [facility] [place], [address] MAGNESIUM Collected: 02/10/2018 Status: F Source: INDUSTRY 5:40 AM [facility] REPOSITORY TYPE CODE TESTS RESULT OUT OF RANGE REFERENCE UNITS LAB L501.5200 1.6-2.6 mg/dL Low MG 1.5 Performed By: #### L500.2500, L501.5200 #### [facility] [address] [facility] [place] [place], [address] CONSULTATION Observed: 02/10/2018 Status: F Source: INDUSTRY 5:28 AM [facility] REPOSITORY [facility] Medical Records Department [address] [place] [address] Consultation 02/09/18 1134 MR#: [id number] Acct: [id number] Name: SYLVIA THOMPSON Jr. Rep #: [id number] : 1945 73 From: Delta Fu MD PCP: OUT OF TOWN DOCTOR Status: ADM IN Y Location: [place] [address] Problem List (1) Saddle embolism of pulmonary artery Status: Acute Qualifiers: Chronicity: acute (2) Obesity (BMI 30.0-34.9) Status: Chronic (3) Chest pain Status: Acute Qualifiers: Chest pain type: precordial pain Qualified Code(s): R07.2 - Precordial pain (4) Diabetes mellitus Status: Chronic Qualifiers: Diabetes mellitus type: type 2 Diabetes mellitus assisted insulin use: without buttermaker use Diabetes mellitus complication status: with circulatory complication Diabetes mellitus complication detail: with other circulatory complications Qualified Code(s): E11.59 - Type 2 diabetes mellitus with other circulatory complications (5) GERD (gastroesophageal reflux disease) Status: Chronic Qualifiers: Esophagitis presence: esophagitis presence not specified Qualified Code(s): K21.9 - Gastro-esophageal reflux disease without esophagitis (6) Hypertension Status: Chronic Qualifiers: Hypertension type: essential hypertension Qualified Code(s): I10 - Essential (primary) hypertension Reason for Consult Date of Consultation: 02/09/18 Reason for Consultation: Pulmonary embolism History of Present Illness: The patient is a 73 year old M with past medical history listed below, who presented to [facility] on 02/08/2018 secondary to chest pain and shortness of breath. 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 Patient denied any associated diaphoresis, radiation, nausea or vomiting. Patient did note that his shortness of breath did not improve with resting. Patient was transported to the ER for further evaluation. In the emergency room, patient was noted to have sinus tachycardia and an elevated troponin. Patient was given Lovenox subcutaneously. There was some concern for possible pulmonary embolism, so a CT scan was obtained despite elevated creatinine. This was notable for saddle PE, so patient was admitted to the floor for further evaluation. Patient denies any previous history of immobility, travel or trauma. Patient states he has had his routine cancer screening. Patient denies any family history of previous blood clots. 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 Patient does drink 2-4 alcoholic beverages per day, but is never had withdrawal symptoms. Patient denies any illicit drug use. Patient does not take any herbal medications. Patient does have a history of coronary artery disease and had a stent placed approximately 10 years ago. Patient denies any prodromal symptoms prior to onset of symptoms. Patient denies any lower extremity edema, cellulitis, fever, chills, nausea or vomiting. Patient exercises regularly by swimming and playing [employer]. Review of systems otherwise negative x10 systems. Past Medical History Past Medical History (Chronic Problems): Chronic Problems Obesity (BMI 30.0-34.9) (Chronic) Diabetes mellitus (Chronic) GERD (gastroesophageal reflux disease) (Chronic) Hypertension (Chronic) Allergies No Known Allergies Allergy (Verified 02/08/18 11:54) Home Medications: Ambulatory Orders Medication Instructions Recorded Atenolol [Tenormin] 100 mg PO DAILY 02/08/18 Doxazosin Mesylate 2 mg PO QHS 02/08/18 Surgical History: tonsillectomy, - - Coronary artery stent placement Psychiatric History: No pertinent psych hx Lives: Spouse/ Significant Other Smoking Status: Former smoker Tobacco Use: Non-smoker Alcohol: Occasional - Patient has regular alcohol intake of approximately 4 drinks a night according to the Drugs: None - *Family History Maternal History Items: Heart Disease - Patient's mother of an SD in her 60s Paternal History Items: Cancer - Prostate cancer Review of Systems Comment: See HPI Patient Problems: Active and Suspected Problems Chest pain (Acute) Saddle embolism of pulmonary artery (Acute) - Physical Exam General: Alert, Oriented x3, Cooperative, No apparent distress, Well developed, Well nourished, - - Obese HEENT: Atraumatic, PERRLA, EOMI, Normocephalic, - - No scleral icterus or injection Oral: Moist Mucosa, No Gingival or Mucosal Lesions/ Ulcerations Neck: Supple, No JVD, No Nodes, Trachea Midline Lungs: Clear to auscultation, Normal air movement, No rhonchi, No wheeze, No rales, - - Symmetric expansion. No dullness to percussion. Cardiovascular: Regular rate, Regular Rhythm, Normal S1, Normal S2, No murmurs, No rub noted, No Gallop Abdomen: Bowel Sounds Present, Soft, Non Tender, Non-Distended, Obese Extremities: No clubbing, No cyanosis, No edema, Capillary Refill Less than 3 Seconds Skin: No rashes, No breakdown Musculoskeletal: No Tenderness to Palpation of Joints or Extremities, No Muscle Wasting Lymphatic: No Cervical, Supraclavicular, or Inguinal Adenopathy Neurological: Cranial nerves II-XII grossly intact, Neuro grossly intact, Motor Exam 5/5 strength throughout Psych/Mental Status: Alert and oriented to time, place, person, mood and affect Vital Signs Temp Pulse Resp BP Pulse Ox 36.4 C L 90 19 H 112/62 95 02/09/18 09:21 02/09/18 09:21 02/09/18 09:21 02/09/18 09:21 02/09/18 09:21 Oxygen Flow Rate (L/min) 2 Oxygen Delivery Method Nasal Cannula Weight: 100.2 kg Body Mass Index (BMI) 31.6 Intake and Output for Last 24 Hours Intake Total 1579 / 1579 944 / 944 Balance 1579 / 1579 944 / 944 Laboratory Tests Past 24 Hrs POC Glucose POC Glucose 135 H 134 H 252 H Clinical Impression(s) from Imaging Studies Chest X-Ray 02/08/18 12:13 IMPRESSION: Normal limited inspiratory chest radiograph. Electronically Signed: Homer Van MD at 12:50 EDT , Service support , Chest CTA 02/08/18 14:47 IMPRESSION: Saddle embolus spanning the bifurcation of the right and left main pulmonary arteries. Large central pulmonary emboli in the distal main pulmonary arteries bilaterally which extend into all lobes of both lungs. Flattening of the interventricular septum, consistent with right heart strain. Clear lungs. Moderate-sized hiatal hernia. N.B. : The above information has been verbally conveyed by Ruiz Avelar to Dr. Lopez, AA, on 02/08/2018 18:40:07 (ET). Electronically Signed: Ruiz Avelar, at 18:13 EDT Tel , Service support , Assessment/Plan All Active Problems Chest pain (Acute) Saddle embolism of pulmonary artery (Acute) RECOMMENDATIONS: 1. Continue Lovenox therapy 2. Await echocardiogram 3. Walking oximetry prior to discharge 4. Prefer discharge on Eliquis therapy 5. Continue to cycle troponins, monitor telemetry IMPRESSIONS: 1. Acute hypoxic respiratory insufficiency secondary to saddle PE Patient currently on 2 L nasal cannula oxygen. Patient with extensive clot burden on CT scan of the chest, but appears to be tolerating this well. Patient does have an elevation in troponin, likely secondary to supply demand mismatch. Will need echo to evaluate for right heart strain. Patient does have elevated creatinine at baseline and likely should be placed on Eliquis therapy on discharge. Patient will need a walking oximetry prior to discharge. 2. Non-ST elevation SD Patient was slightly elevated troponin, but no significant EKG changes. Clinical suspicion for supply demand mismatch, but patient does have a history of coronary artery disease with a stent approximately 10 years ago. Patient is currently on Lovenox therapy. Defer to hospitalist on whether cardiology needs to get involved. Await results of echocardiogram 3. Obesity/advanced age/diabetes/GERD/hypertension Complicates care, management, recovery and prognosis. Likely okay to continue with baseline medications. Monitor blood sugars as these can be elevated secondary to adrenal response. Code Visit Inpatient E AND M: [id number] Init Hosp L3 02/10/18 0528 <Electronically signed by Delta Fu MD> Date Delta Fu MD Cosigner Signature (if applicable): Date CC: Delta Fu MD; Nghia Lopez DO; OUT OF TOWN DOCTOR Signed BEDSIDE GLUCOSE Collected: 02/09/2018 Status: F Source: KEEGAN 10:03 PM [facility] REPOSITORY TYPE CODE TESTS RESULT OUT OF REFERENCE UNITS RANGE LAB L501.080 70-110 mg/dL High BEDSIDE GLU 205 Result Comment: MANAGEMENT OF PATIENT CARE PER NURSING PROTOCOL Performed By: #### L501.080 #### [facility] Point of Care [address] [place] [address] BEDSIDE GLUCOSE Collected: 02/09/2018 Status: F Source: KEEGAN 4:31 PM [facility] REPOSITORY TYPE CODE TESTS RESULT OUT OF REFERENCE UNITS RANGE LAB L501.080 70-110 mg/dL High BEDSIDE GLU 111 Result Comment: MANAGEMENT OF PATIENT CARE PER NURSING PROTOCOL Performed By: #### L501.080 #### [facility] Point of Care [address] [place] [address] BEDSIDE GLUCOSE Collected: 02/09/2018 Status: F Source: KEEGAN 11:52 AM [facility] REPOSITORY TYPE CODE TESTS RESULT OUT OF REFERENCE UNITS RANGE LAB L501.080 70-110 mg/dL High BEDSIDE GLU 288 Result Comment: MANAGEMENT OF PATIENT CARE PER NURSING PROTOCOL Performed By: #### L501.080 #### [facility] Point of Care [address] [place] [address] BEDSIDE GLUCOSE Collected: 02/09/2018 Status: F Source: KEEGAN 6:45 AM [facility] REPOSITORY TYPE CODE TESTS RESULT OUT OF REFERENCE UNITS RANGE LAB L501.080 70-110 mg/dL High BEDSIDE GLU 135 Result Comment: MANAGEMENT OF PATIENT CARE PER NURSING PROTOCOL Performed By: #### L501.080 #### [facility] Point of Care [address] [place], [place] [id number] BASIC METABOLIC Collected: 02/09/2018 Status: F Source: KEEGAN PROFILE (BMP) 4:44 AM [facility] REPOSITORY TYPE CODE TESTS RESULT OUT OF RANGE REFERENCE UNITS LAB L501.0100 74-106 mg/dL High GLU 116 Result Comment: Fasting Glucose result from 100 to 125 mg/dL suggests IMPAIRED HOMEOSTASIS per A.D.A. criteria. Please note revised GLUCOSE reference range effective 2017. LAB L501.1000 7-18 mg/dL Normal BUN 13 LAB L501.1100 0.70-1.30 mg/dL High CREAT,SERUM 1.52 Result Comment: The validity of the calculated GFR AND GFRAA in patients over 70 years has not been determined. Clinical correlation is essential. LAB L501.1110 >60 mL/min Low EST GFR 48 Result Comment: Non- GFR Calc LAB L501.1115 >60 mL/min Low EST GFR - AA 58 Result Comment: GFR Calc LAB L501.1255 ml/min Normal Estimated CRCL 46.03 LAB L501.1300 10-20 RATIO Low BUN/CRE 8.6 LAB L501.2200 8.5-10 mg/dL Low .1 CA 8.0 LAB L501.5300 136-14 mmol/L Normal 5 NA 140 LAB L501.5600 3.5-5. mmol/L Normal 1 K 4.0 LAB L501.5900 98-107 mmol/L High CL 110 LAB L501.6100 21.0-3 mmol/L Low 2.0 CO2 20.0 LAB L501.6200 5-15 Normal GAP 10 Performed By: #### L500.2500, L501.2300, L501.5200 #### [facility] [address] [place], [place], [id number] PHOSPHORUS Collected: 02/09/2018 Status: F Source: KEEGAN 4:44 AM [facility] REPOSITORY TYPE CODE TESTS RESULT OUT OF RANGE REFERENCE UNITS LAB L501.2300 2.5-4.9 mg/dL Normal PHOS 2.8 Performed By: #### L500.2500, L501.2300, L501.5200 #### [facility] [address] [place], [address] MAGNESIUM Collected: 02/09/2018 Status: F Source: KEEGAN 4:44 AM [facility] REPOSITORY TYPE CODE TESTS RESULT OUT OF RANGE REFERENCE UNITS LAB L501.5200 1.6-2.6 mg/dL Low MG 1.1 Performed By: #### L500.2500, L501.2300, L501.5200 #### [facility] [address] [place], [address] BEDSIDE GLUCOSE Collected: 02/08/2018 Status: F Source: INDUSTRY 10:15 PM [facility] REPOSITORY TYPE CODE TESTS RESULT OUT OF REFERENCE UNITS RANGE LAB L501.080 70-110 mg/dL High BEDSIDE GLU 134 Result Comment: MANAGEMENT OF PATIENT CARE PER NURSING PROTOCOL Performed By: #### L501.080 #### [facility] Point of Care [address] [place] [address] TROPONIN-I Collected: 02/08/2018 Status: F Source: INDUSTRY 6:00 PM [facility] REPOSITORY Order Comment: 'TROP' Serial specimen #1, #2 or #3: 3 TYPE CODE TESTS RESULT OUT OF RANGE REFERENCE UNITS LAB L501.4010 <0.045 ng/mL High alert 0.855 TROPONIN-I Result Comment: Critical Result(s) Called [place] MARIA at: 18:49:14 02/08/2018 by: MARSHALL VALENCIA TROPONIN-I EXPECTED VALUES <0.045 Negative 0.045 - 0.590 Consistent with Cardiac Damage > OR = 0.600 Critical Value Not every elevated troponin is indicative of SD. These values should be used with clinical judgement in examining the patient's clinical picture for diagnosis. To establish a diagnosis of SD versus myocardial injury, there must be a demonstrated rise and/or fall in the troponin values, in addition to ischemic symptoms, EKG changes, new regional wall motion abnormality, and/or angiographical evidence. PLEASE NOTE: REFERENCE RANGES EDITED 17 Performed By: #### L501.4010 #### [facility] [address] [place], [address] HISTORY AND PHYSICAL Observed: 02/08/2018 Status: F Source: INDUSTRY EXAM 5:55 PM [facility] REPOSITORY [facility] Medical Records Department [address] [place] [address] History and Physical 02/08/18 1743 MR#: [id number] Acct: [id number] Name: SYLVIA THOMPSON Rep #: [id number] : 1945 73 From: Nghia Lopez DO PCP: OUT OF TOWN DOCTOR Status: ADM IN Y Location: [place] [address] Problem List (1) Chest pain Status: Acute Qualifiers: Chest pain type: precordial pain Qualified Code(s): R07.2 - Precordial pain History of Present Illness Date of Admission: 02/08/18 Chief Complaint: Chest pain The patient is a 73 year old M who was seen in the emergency room at [facility] with chief complaint of precordial chest pain which began earlier this morning. He described the chest pain as pressure-like in nature, it was accompanied by weakness but no shortness of breath. Patient denied any diaphoresis, he denied any radiation of the chest discomfort into his neck or down his arms or into his back area. Patient denied any nausea or vomiting. Patient stated to this examiner that activity actually resulted in the chest pain getting better today. Patient has a remote history of coronary artery disease with a stent placement 10 years ago, he does have type 2 diabetes. Evaluation in the emergency room included an EKG which showed a sinus tachycardia without evidence of ischemic changes, patient's labs showed an elevated troponin at 0.379, patient's glucose is elevated at 388, white blood cell count was unremarkable. Patient had a chest x-ray which showed no evidence of pathology, patient's d-dimer was elevated at 2.81, he was elevated at 1.81. On examination, patient is alert and appropriate, he does not have any complaints of chest pain, lungs were clear bilaterally, heart rate and rhythm is regular, no lower extremity edema was noted. Patient will be admitted to PCU for a non- STEMI, cardiology was contacted and will see the patient in consultation, they advised giving the patient Plavix and Lovenox subcu to fully anticoagulate the patient. Due to the fact the patient has an elevated d-dimer and I do not really have a reason for this d-dimer elevation, patient may have a pulmonary embolism and I will order a CTA to be done after the patient reaches the floor. Patient will be given IV fluids due to his elevated creatinine. Past Medical History Allergies No Known Allergies Allergy (Verified 02/08/18 11:54) Surgical History: tonsillectomy, - - Coronary artery stent placement Psychiatric History: No pertinent psych hx Lives: Spouse/ Significant Other Smoking Status: Former smoker Tobacco Use: Non-smoker Alcohol: Occasional - Patient has regular alcohol intake of approximately 4 drinks a night according to the Drugs: None - *Family History Maternal History Items: Heart Disease - Patient's mother of an SD in her 60s Paternal History Items: Cancer - Prostate cancer Review of Systems Constitutional: Reports: Fatigue. Denies: Anorexia, Fever, Night Sweats, Malaise, Weakness, Weight Change Eyes: Denies: Blurred vision, Cataracts, Conjunctivae Inflammation, Double vision, Drainage HEENT: Denies: Difficulty Hearing, Difficulty Swallowing, Dysphasia, Ear Pain, Eye Pain, Head Aches, Hearing Changes, Nasal bleeding, Nasal Congestion, Post Nasal Drip Cardiovascular: Reports: Chest Pain, Chest Pressure. Denies: Claudication, Edema, Light Headedness, Orthopnea, Palpitations, Paroxysmal Noc. Dyspnea, Syncope Respiratory: Denies: Cough, Hemoptysis, Pleuritic Pain, Shortness of Breath, Shortness of breath at rest, Shortness of breath upon exertion, Sputum production Gastrointestinal: Denies: Abdominal Pain, Constipation, Diarrhea, Hematemesis, Hematochezia, Nausea, Melena, Vomiting Genitourinary: Denies: Dysuria, Frequency, Hematuria, Hesitancy, Incontinence, Nocturia, Urgency Musculoskeletal: Denies: Foot Pain, Hand Pain, Joint Pain, Joint stiffness, Joint swelling, Joint Tenderness, Leg Pain Skin: Denies: Dryness, Jaundice, Pruritis, Rash Neurological: Denies: Blurred vision, Double vision, Slurred speech, Difficulty swallowing, Focal weakness, Headaches, Incoordination, Numbness, Tingling Psychiatric: Denies: Anxiety, Depression, Homicidal Ideations, Suicidal Ideations Endocrine: Denies: Change in Body Habitus, Heat/ Cold Intolerance, Polydipsia, Polyuria Hematologic/ Lymphatic: Denies: Adenopathy, Anemia, Easy Bruising, Easy Bleeding, Petechiae, Purpura VTE Information - Inpt Only VTE Present on Admission: No VTE Mechan Device Prophylaxis: None VTE Pharm Prophylaxis ordered?: No Reason prophylaxis not ordered:: Medical Contraindication - Patient will be fully anticoagulated due to suspected non-STEMI Patient Problems: Active and Suspected Problems Chest pain (Acute) - Physical Exam General: Alert, Oriented x3, Cooperative, No apparent distress, Well developed, Well nourished HEENT: Atraumatic, PERRLA, EOMI, Normocephalic Oral: Moist Mucosa Neck: Supple, No JVD, Negative Carotid Bruits, No Nuchal Rigidity, Trachea Midline, Thyroid Normal Size and Texture Lungs: Clear to auscultation, Normal air movement, No rhonchi, No wheeze, No rales Cardiovascular: Regular rate, Regular Rhythm, Normal S1, Normal S2, No murmurs, No Ectopic Activity, PMI Normal, No rub noted, Tachycardic Abdomen: Bowel Sounds Present, Soft, Non Tender, Non-Distended Extremities: No clubbing, No cyanosis, No edema, Capillary Refill Less than 3 Seconds Skin: No rashes, No breakdown Musculoskeletal: No Tenderness to Palpation of Joints or Extremities Neurological: Cranial nerves II-XII grossly intact, Neuro grossly intact, Muscle tone normal, Sensory exam intact to light touch and pain, Coordination normal Psych/Mental Status: Normal Affect, Appropriate, Alert and oriented to time, place, person, mood and affect Vital Signs Temp Pulse Resp BP Pulse Ox 97.5 F L 113 H 19 H 104/70 96 02/08/18 14:52 02/08/18 14:52 02/08/18 14:52 02/08/18 14:52 02/08/18 15:45 Oxygen Flow Rate (L/min) 2 Oxygen Delivery Method Nasal Cannula Weight: 100.2 kg Body Mass Index (BMI) 31.6 Laboratory Tests Past 24 Hrs Troponin I 0.797 H* POC Glucose POC Glucose 252 H Assessment/Plan All Active Problems Chest pain (Acute) #1 acute [id number] will be admitted to PCU, he will be maintained on subcu Lovenox for full anticoagulation, cardiac enzymes will be cycled, he will be monitored on telemetry, patient will have an echocardiogram performed, patient will be seen in consultation by cardiology, patient will be maintained on a baby aspirin a day and Plavix 75 mg daily. #2 elevated r-oudem-cqjdidze unclear, patient will undergo CTA of his chest today to rule out pulmonary embolism #3 type 2 diabetes-patient's blood sugars will be monitored by fingerstick and sliding scale insulin will be administered #4 elevated creatinine-I have no creatinine available for comparison, patient will be given IV fluids and a BMP will be rechecked tomorrow #5 history of coronary artery disease with stent placement approximately 10 years ago #6 hyperlipidemia #7 essential hypertension At this time, patient does not know the doses of his medications, his also does not know the doses of his medications, she is to contact nursing this evening to provide a full list and dose of his medications. Code Visit Inpatient E AND M: [id number] Init Hosp L3 02/08/18 8402 <Electronically signed by Nghia Lopez DO> Date Nghia Lopez DO Cosigner Signature: Date (if applicable) CC: Nghia Lopez DO; OUT OF TOWN DOCTOR Signed EMERGENCY DEPARTMENT Observed: 02/08/2018 Status: F Source: INDUSTRY SUMMARY 4:24 PM [facility] REPOSITORY [facility] Medical Records Department [address] [place] [address] Emergency Department Summary 02/08/18 1214 MR#: [id number] Acct: [id number] Name: SYLVIA THOMPSON Gerald Farrell Rep #: [id number] : 1945 73 From: Jo Littlejohn MD PCP: OUT OF TOWN DOCTOR Status: ADM IN - ER Visit Summary Date of Service: 02/08/18 Chief Complaint: Chest pain History of Present Illness: The patient is a 73 M presenting with chest pain. Patient woke up this morning with left-sided chest pain. He went golfing. He states he he began to feel diaphoretic and near syncopal. He has not had these symptoms in the past. He denies PE/DVT risk factors. He has a history of coronary disease, diabetes, hypertension, hyperlipidemia. He is not a smoker. He has 1 stent from 10 years ago. Physical Examination: Vitals are stable. Patient is afebrile. Alert no acute distress. HEENT exam is unremarkable. Neck is supple. Lungs are clear and equal bilaterally. Heart is regular and tachycardic Abdomen is soft nontender nondistended. Extremities are unremarkable. Skin is warm and dry. No focal neurologic deficit. Remainder of exam is unremarkable. Emergency Department Course and Treatment: EKG is sinus tachycardia rate of 135. Patient was given aspirin on arrival. CBC normal except platelets 133. Chemistry normal except for sodium 133, creatinine 1.81. Troponin is 0.379. D-dimer 2.81. Patient is pain-free on reevaluation. He was given Lovenox subcutaneously. Discussed with the hospitalist for admission. Disposition: Admission Impression: Chest pain This note was generated with [employer] dictation software. It may contain incorrect words, spelling, and punctuation that were not noted in review of the chart prior to signing ED Disposition - Plan for ED Patient: Disposition: Acute Care Hospital [facility] Chief Complaint: Chest Pain What to do if you have Problems For any increased pain, shortness of breath, bleeding, nausea or vomiting, chest pain, or any unexpected problems, contact your Primary Care Provider. Call [facility] ([phone]) or report to the closest Emergency Room. Call 911 if necessary. 02/08/18 1624 <Electronically signed by Jo Littlejohn MD> Date Jo Littlejohn MD Cosigner Signature (If Indicated): Date CC: OUT OF TOWN DOCTOR BEDSIDE GLUCOSE Collected: 02/08/2018 Status: F Source: KEEGAN 3:31 PM [facility] REPOSITORY TYPE CODE TESTS RESULT OUT OF REFERENCE UNITS RANGE LAB L501.080 70-110 mg/dL High BEDSIDE GLU 252 Result Comment: MANAGEMENT OF PATIENT CARE PER NURSING PROTOCOL Performed By: #### L501.080 #### [facility] Point of Care [address] [place] [address] CTA CHEST W/WO Observed: 02/08/2018 Status: F Source: INDUSTRY CONTRAST 2:48 PM [facility] REPOSITORY [facility] Imaging Services [address] [place] [address] CTA Chest W/WO Contrast MR#: [id number] Acct: [id number] Name: SYLVIA THOMPSON Jr. Rep #: [id number] : 1945 M 73 From: Ruiz Avelar MD PCP: OUT OF TOWN DOCTOR Status: ADM IN Study: CTA Chest W/WO Contrast Date of Exam: 02/08/18 Exam# [id number] Ordering Dr: Nghia Lopez DO STUDY: CTA CHEST REASON FOR EXAM: Male, 73 years old. Chest pain. RADIATION DOSAGE (If Supplied By Facility): CTDIvol = ( 22.81 ) mGy, DLP = ( 780.59 ) mGycm TECHNIQUE: The examination was performed with the intravenous administration of 75ml ml of Isovue 370 contrast material. Post-processing of the angiographic images was performed, with multiplanar reformation and 3D reconstruction. Individualized dose optimization techniques were used for this CT. COMPARISON: None. FINDINGS: There is a saddle embolus spanning the bifurcation of the right and left main pulmonary arteries. There are large central pulmonary emboli in the distal main pulmonary arteries bilaterally which extend into all lobes of both lungs. There is flattening of the interventricular septum, consistent with right heart strain. The heart is normal in size. There are coronary artery stents noted. There is no pericardial effusion. There is no thoracic lymphadenopathy. There is a moderate sized hiatal hernia present. There is no pneumothorax. There are no pulmonary infiltrates or pleural effusions. Images through the upper abdomen demonstrate no significant abnormality. There are no destructive osseous lesions. CT/CTA Chest W/WO Contrast IMPRESSION: Saddle embolus spanning the bifurcation of the right and left main pulmonary arteries. Large central pulmonary emboli in the distal main pulmonary arteries bilaterally which extend into all lobes of both lungs. Flattening of the interventricular septum, consistent with right heart strain. Clear lungs. Moderate-sized hiatal hernia. N.B. : The above information has been verbally conveyed by Ruiz Avelar to Dr. Lopez, SUM[place], on 02/08/2018 18:40:07 (ET). Electronically Signed: Ruiz Avelar, at 18:13 EDT Tel , Service support , CC: Nghia Lopez DO; OUT OF TOWN DOCTOR Bacteriologist Soil: Signed D-DIMER QUANTITATIVE Collected: 02/08/2018 Status: F Source: KEEGAN (DVT/PE) 12:36 PM [facility] REPOSITORY Order Comment: REDRAW. PREVIOUS SPECIMEN REJECTED DUE TO QNS. 02/08/18 1228 Mary Puga. TYPE CODE TESTS RESULT OUT OF RANGE REFERENCE UNITS LAB L300.8000 0.27-0.49 FEU/ug/m High alert D-DIMER 2.81 QUANT Result Comment: D-Dimer ELEVATED (>0.49): Additional studies and clinical assessments are indicated to conclude diagnosis of: Deep Vein Thrombosis (DVT) or Pulmonary Embolism (PE) CRITICAL VALUE VERIFIED. CALLED TO UMANG MARKS 02/08/18 1253 Mary Puga. RESULTS READ BACK BY SAME . Performed By: #### L300.8000 #### [facility] [place], [address] CBC W/DIFF, AUTOMATED Collected: 02/08/2018 Status: F Source: KEEGAN 12:14 PM [facility] REPOSITORY TYPE CODE TESTS RESULT OUT OF RANGE REFERENCE UNITS LAB L100.1000 4.4-11.0 K/mm3 Normal WBC 9.1 LAB L100.1200 4.6-6.2 M/mm3 Low RBC 4.07 LAB L100.1300 13.0-16.5 g/dl Normal HGB 13.6 LAB L100.1400 40-54 % Low HCT 39.8 LAB L100.1500 80-94 fL High MCV 97.8 LAB L100.1600 27.0-32.0 pg High MCH 33.4 LAB L100.1700 32-36 g/gl Normal MCHC 34.2 LAB L100.1810 11.6-14.6 % Normal RDW CV 13.7 LAB L100.1820 35.1-43.9 fl High RDW SD 48.5 LAB L100.1900 150-450 K/mm3 Low PLT 133 LAB L100.2000 6.2-12.0 fl Normal MPV 10.4 LAB L100.2100 47-70 % High NEUT% 83.5 LAB L100.2200 19-41 % Low LY% 10.8 LAB L100.2300 0-10 % Normal MONO% 4.6 LAB L100.2400 0-5 % Normal EO% 0.7 LAB L100.2500 0-1 % Normal BASO% 0.2 LAB L100.2550 0.0-0.9 % Normal IM GRAN % 0.200 Result Comment: IG% - Immature Granulocytes (promyelocytes, myelocytes and metamyelocytes) > 1% indicates that a LEFT SHIFT is Present. LAB L100.2620 2.0-7.7 X10 3/uL Normal Absolute Neut 7.6 LAB L100.2720 0.83-4.51 X10 3/ul Normal Absolute Lymph 0.98 Performed By: #### L100.0100 #### [facility] [address] [place], [address] BASIC METABOLIC Collected: 02/08/2018 Status: F Source: INDUSTRY PROFILE ([facility]) 12:14 PM [facility] REPOSITORY Order Comment: 'TROP' Serial specimen #1, #2, #3, or #4: 1 TYPE CODE TESTS RESULT OUT OF RANGE REFERENCE UNITS LAB L501.0100 74-106 mg/dL High GLU 388 Result Comment: Glucose result greater than or equal to 200 mg/dL suggests DIABETES MELLITUS per A.D.A. criteria. Please note revised GLUCOSE reference range effective 2017. LAB L501.1000 7-18 mg/dL Normal BUN 14 LAB L501.1100 0.70-1.30 mg/dL High CREAT,SERUM 1.81 Result Comment: The validity of the calculated GFR AND GFRAA in patients over 70 years has not been determined. Clinical correlation is essential. LAB L501.1110 >60 mL/min Low EST GFR 40 Result Comment: Non- GFR Calc LAB L501.1115 >60 mL/min Low EST GFR - AA 48 Result Comment: GFR Calc LAB L501.1255 ml/min Normal Estimated CRCL 38.65 LAB L501.1300 10-20 RATIO Low BUN/CRE 7.7 LAB L501.2200 8.5-10 mg/dL Low .1 CA 8.4 LAB L501.5300 136-14 mmol/L Low 5 NA 133 LAB L501.5600 3.5-5. mmol/L Normal 1 K 4.4 LAB L501.5900 98-107 mmol/L Normal CL 103 LAB L501.6100 21.0-3 mmol/L Low 2.0 CO2 14.0 LAB L501.6200 5-15 High GAP 16 Performed By: #### L500.2500, L501.4010 #### [facility] [address] [place], [place], [address] TROPONIN-I Collected: 02/08/2018 Status: F Source: INDUSTRY 12:14 PM [facility] REPOSITORY Order Comment: 'TROP' Serial specimen #1, #2, #3, or #4: 1 TYPE CODE TESTS RESULT OUT OF RANGE REFERENCE UNITS LAB L501.4010 <0.045 ng/mL High 0.379 TROPONIN-I Result Comment: TROPONIN-I EXPECTED VALUES <0.045 Negative 0.045 - 0.590 Consistent with Cardiac Damage > OR = 0.600 Critical Value Not every elevated troponin is indicative of SD. These values should be used with clinical judgement in examining the patient's clinical picture for diagnosis. To establish a diagnosis of SD versus myocardial injury, there must be a demonstrated rise and/or fall in the troponin values, in addition to ischemic symptoms, EKG changes, new regional wall motion abnormality, and/or angiographical evidence. PLEASE NOTE: REFERENCE RANGES EDITED 17 Performed By: #### L500.2500, L501.4010 #### [facility] [address] [place], [place], [address] CHEST 1 VIEW Observed: 02/08/2018 Status: F Source: KEEGAN (PORTABLE) 12:14 PM [facility] REPOSITORY [facility] Imaging Services [address] [place] [address] Chest 1 View (Portable) MR#: [id number] Acct: [id number] Name: SYLVIA THOMPSON Jr. Rep #: [id number] : 1945 M 73 From: Homer Van MD PCP: OUT OF TOWN DOCTOR Status: REG ER Study: Chest 1 View (Portable) Date of Exam: 02/08/18 Exam# [id number] Ordering Dr: Jo Littlejohn MD STUDY: X-RAY CHEST REASON FOR EXAM: Male, 73 years old. Chest pain. TECHNIQUE: AP portable view. COMPARISON: None. FINDINGS: Mild pulmonary hypoinflation. The lungs are clear. There is no demonstrated pleural abnormality. Normal size heart. Normal mediastinum and jose. Normal visualized pulmonary arteries. Normal visualized aortic arch and descending thoracic aorta. Normal visualized thoracic spine. Normal visualized ribs, clavicles, and shoulders. There is no demonstrated abnormality of the visualized soft tissue structures of the upper abdomen. RAD/Chest 1 View (Portable) IMPRESSION: Normal limited inspiratory chest radiograph. Electronically Signed: Homer Van MD at 12:50 EDT , Service support , CC: Jo Littlejohn MD; OUT OF TOWN DOCTOR Bacteriologist [place]: Signed ALLERGIES ALLERGIES DATE TYPE / CODE NAME / CODE REACTION SEVERITY SOURCE 06/03/2018 Drug No Known Unknown [facility] Allergy/4160 Allergies/F00 [facility] [address](SNOMED 4257189(RXNOR Repository CT) M) ENCOUNTERS ENCOUNTERS ADMIT/DISCHARGE ACCOUNT NUMBER ADMITTING ENCOUNTER LOCATION SOURCE CLASS 06/03/2018/06/03/19 [id number] Ambulatory BMSBuilding: [place] 19 BMS.PMW [facility] Repository 05/08/2018 [id number] Ambulatory BMSBuilding: [facility] Repository 05/06/2018 [id number] Ambulatory [facility] ding:PSN Repository 05/02/2018 [id number] Ambulatory BMSBuilding: [facility] Repository 05/02/2018 [id number] Ambulatory [facility] ding:PSN Repository 02/26/2018/02/27/20 [id number] Ambulatory BMSBuilding: [place] [address] BMS.[facility] Repository 02/09/2018 [id number] Ambulatory BMSBuilding: [facility] Repository 02/08/2018/02/11/20 [id number] Keishaeletsadrián, Inpatient [address] ding:PCURoom Repository : [id number]: 1 02/08/2018 [id number] Tere[place], Ambulatory BMSBuilding: [place] BMS.[facility] Repository 02/08/2018 [id number] Te[place], Ambulatory BMSBuilding: [place] BMS.[facility] Repository 02/08/2018 [id number] Tereletsky, Ambulatory BMSBuilding: [place] BMS.[facility] Repository 02/08/2018/02/11/20 [id number] Ambulatory BMSBuilding: [address] Repository 02/08/2018/02/11/20 [id number] Ambulatory BMSBuilding: [address] Repository 02/08/2018/02/11/20 [id number] Ambulatory BMSBuilding: [address] Repository 11/15/2017/11/16/19 [id number] Ambulatory BBuilding:[address] Repository 09/23/2017 [id number] Ambulatory BBuilding:[facility] Repository PAYERS PAYERS ENCOUNTER GUARANTOR PAYER SUBSCRIBER SOURCE 06/03/2018 SYLVIA THOMPSON Primary Insurance:VAN Allison Jr.[address] [facility] Jr[facility] PATH MEBGKGQCEffective [id number] Date:5544-43-12RI BOX Repository [address]Rnb: [phone] [facility], [place] [phone] (HP) [phone]: 06/03/2018 Secondary NOT GIVENUNK [place] Insurance:SELF PAY Community INSURANCEPolicy Number: Hospital Effective Repository Date:2018-05-28 05/08/2018 SYLVIA THOMPSON Primary Insurance:AETNA SYLVIA Michaelsoster Jr.2714 MILL MCRPolicy Number: Jr.: Community [address] PATH Joshive [id number] [place] Date:6015-30-37IS BOX Repository [address]Rdv: [phone] [place], [place] [phone] (HP) [phone]: 05/08/2018 Secondary NOT GIVENUNK [place] Insurance:SELF PAY Community INSURANCEPolicy Number: Hospital Effective Repository Date:2018-05-08 05/06/2018 SYLVIA THOMPSON Primary Insurance:AETNA SYLVIA Michaelsoster Jr.Patience4 MILL MCRPolicy Number: Jr.: Community R[address] PATH OLEGARIOKGRodriguezfective [id number] Hospital of [facility] [place] Date:7017-71-89DB BOX Repository [address]Avv: [phone] [facility] [place] [phone] (HP) [phone]: 05/06/2018 Secondary NOT GIVENUNK [place] Insurance:SELF PAY Community INSURANCEPolicy Number: Hospital Effective Repository Date:2018-02-26 05/02/2018 SYLVIA THOMPSON Primary Insurance:AETNA SYLVIA Michaelsoster Jr.2714 MILL MCRPolicy Number: Jr.: Community [address] PATH Pablofective [id number] Hospital of [place] [facility] [place] Date:9086-44-96GL BOX Repository [address]Iru: [phone] [facility] [place] [phone] (HP) [phone]: 05/02/2018 Secondary NOT GIVENUNK [place] Insurance:SELF PAY Community INSURANCEPolicy Number: Hospital Effective Repository Date:2018-05-02 05/02/2018 SYLVIA THOMPSON Primary Insurance:AETNA SYLVIA Allison JrStephanie2714 [place] MCRPolicy Number: Jr.: Community [place] PATH MEBGKGQCEffective [id number] Hospital of [facility] [place] Date:3194-86-12GG BOX Repository [address]Jwh: [phone] [facility], [place] [phone] () [address]GI: 05/02/2018 Secondary NOT GIVENUNK [place] Insurance:SELF PAY Community INSURANCEPolicy Number: Hospital Effective Repository Date:2018-02-26 02/26/2018 SYLVIA THOMPSON Primary Insurance:AETNA SYLVIA Allison JrStephanie2714 AGNIESZ[place] MCRPolicy Number: Jr.: [facility] PATH BGKGQCEfjovita [id number] Hospital of [facility] [place] Date:5392-97-96OQ BOX Repository [address]Ysh: [phone] [facility], [place] [phone] () [address]MJ: 02/26/2018 Secondary NOT GIVENUNK [place] Insurance:SELF PAY Community INSURANCEPolicy Number: Hospital Effective Repository Date:2018-02-18 02/09/2018 SYLVIA THOMPSON Primary Insurance:AETNA SYLVIA Sandra4 AGNIESZKA MCRPolicy Number: Jr.: [facility] PATH MEBGKGQCEfpaulive [id number] Hospital of [facility] [place] Date:7507-61-51WV BOX Repository [address]Jos: [phone] [facility], [place] [phone] () [address]XU: 02/09/2018 Secondary NOT GIVENUNK [place] Insurance:SELF PAY Community INSURANCEPolicy Number: Hospital Effective Repository Date:2018-02-09 02/08/2018 SYLVIA THOMPSON Primary Insurance:AETNA SYLVIA Sandra4 AGNIESZKA MCRPolicy Number: Jr.: Community [address] PATH BGKGQCEffective [id number] Hospital of [facility] [place] Date:2810-67-80VT BOX Repository [address]Fzz: [phone] [place], [place] [phone] (HP) [phone]: 02/08/2018 Secondary NOT GIVENUNK [place] Insurance:SELF PAY Community INSURANCEPolicy Number: Hospital Effective Repository Date:2018-02-08 02/08/2018 SYLVIA THOMPSON Primary Insurance:AETNA SYLVIA Allison Jr.2714 [place] MCRPolicy Number: Jr.: Community [address] PATH BGKGQCEffective [id number] Hospital of [facility] [place]:6198-83-78CW BOX Repository [address]Icl: [phone] [place], [place] [phone] (HP) [phone]: 02/08/2018 Secondary NOT GIVENUNK [place] Insurance:SELF PAY Community INSURANCEPolicy Number: Hospital Effective Repository Date:2018-02-08 02/08/2018 SYLVIA THOMPSON Primary Insurance:AETNA SYLVIA Allison JrStephanie2714 [place] MCRPolicy Number: Jr.: Community [address] PATH BGKGQCEffective [id number] Hospital of [facility] [place] Date:2491-51-49HI BOX Repository [address]Xtm: [phone] [facility] [place] [phone] (HP) [phone]: 02/08/2018 Secondary NOT GIVENUNK [place] Insurance:SELF PAY Community INSURANCEPolicy Number: Hospital Effective Repository Date:2018-02-08 02/08/2018 SYLVIA THOMPSNO Primary Insurance:AETNA SYLVIA Allison Jr.2714 [place] MCRPolicy Number: Jr.: Community [address] PATH BGKGQCEffective [id number] Hospital of [place] [facility] [place] Date:6315-24-75[place] BOX Repository [address]Ows: [phone] [facility] [place] [phone] (HP) [phone]: 02/08/2018 Secondary NOT GIVENUNK [place] Insurance:SELF PAY Community INSURANCEPolicy Number: Hospital Effective Repository Date:2018-02-08 02/08/2018 SYLVIA THOMPSON Primary Insurance:AETNA SYLVIA Gerald Allison Jr.2714 [place] MCRPolicy Number: Jr.: Community [address] PATH BGKGQCSarwat [id number] Hospital of [facility] [place] Date:4098-57-64QN BOX Repository [address]Ere: [phone] [place], [place] [phone] (HP) [phone]: 02/08/2018 Secondary NOT GIVENUNK [place] Insurance:SELF PAY Community INSURANCEPolicy Number: Hospital Effective Repository Date:2018-02-08 02/08/2018 SYLVIA THOMPSON Primary Insurance:AETNA SYLVIA Allison Jr.2714 [place] MCRPolicy Number: Jr.: Community R[address] PATH BGKGQCEfjovita [id number] Hospital of [facility] [place] Date:0112-80-77PY BOX Repository [address]Nyn: [phone] [place], [place] [phone] () [address]DS: 02/08/2018 Secondary NOT GIVENUNK [place] Insurance:SELF PAY Community INSURANCEPolicy Number: Hospital Effective Repository Date:2018-02-08 02/08/2018 SYLVIA THOMPSON Primary Insurance:AETNA SYLVIA Allison Jr.2714 [place] MCRPolicy Number: Jr.: Community [address] PATH MEBGKGQCEffective [id number] Hospital of [facility] [place] Date:9984-13-07FY BOX Repository [address]Qku: [phone] [facility] [place] [phone] (HP) [phone]: 02/08/2018 Secondary NOT GIVENUNK [place] Insurance:SELF PAY Community INSURANCEPolicy Number: Hospital Effective Repository Date:2018-02-08 11/15/2017 SYLVIA THOMPSON Primary Insurance:AETNA SYLVIA Gerald ANGELALISSETT [facility]ICARE [facility] Jr.: [facility] Number: [id number] Repository [facility] PATH MEBGKGQCEffective 4 [place], [place] Date:2017-10-02 - PATH [email or web address] [id number] Name:KIMBERLEYO TANYA [place] NET.COMTel: [address]Lo[place], [place] [address]Tfl: [phone]: (HP) [phone] (HP) (WP) 09/23/2017 SYLVIA THOMPSON Primary SYLVIA [facility] Insurance:CLINICAL Jr.: [facility] [id number] [facility] [id number] Repository [facility] PATH Number: 4 [place], [place] [id number] PATH [email or web address] Date:2017-09-23 - [facility] [place] NET.COMTel: [phone] [address]Pnv: [phone] Name:[id number] [facility] [phone] (HP) [place], [place] [address]EC: (HP)Tel: (WP)
== END ==
PROVIDERS: Referring Provider Nurse Practitioner Acute Care; Visit Provider Nurse Practitioner Acute Care
DX: R06.00 Dyspnea, unspecified (principal)
CPT/HCPCS: 94618

== ENCOUNTER → 2018-05-06 09:13 | Outpatient (CLI) | payer MEDICARE, SELFPAY ==
--- NOTE | 2018-05-08 14:51 | PFT ---
INTRODUCTION: The patient is a 73-year-old male that presents for pulmonary function testing secondary to a diagnosis of dyspnea. Respiratory therapy reports good patient effort. Bronchodilators were used during testing. INTERPRETATION: Forced expiration spirometry demonstrates no evidence of a large airways obstructive ventilatory defect. There was no significant response to aerosolized bronchodilators. Spirograms are of fair quality and plateau normally. Body plethysmography was performed and reveals lung volumes to be within normal limits. Diffusing capacity by single breath CO is also within normal limits at 83% of predicted. IMPRESSION: Grossly normal pulmonary function testing.
--- OUTSIDE RECORDS SUMMARY | 2018-08-07 15:51 | XMS RPT_ITS ---
:1945 Author Organization OHIP Support Name Relationship Address Phone JOHNNIE THOMPSONARA Unavailable [address] [facility] [address] + [place] [address] R Unavailable Unavailable Unavailable JOHNNIE THOMPSONARA Unavailable [address] [facility] [address] + [place] [address] R Unavailable Unavailable Unavailable JOHNNIE THOMPSONARA Unavailable [address] [facility] [address] + [place] [address] R Unavailable Unavailable Unavailable JAY BRETT Unavailable [address] [facility] [address] + [place] [address] R Unavailable Unavailable Unavailable BRETT THOMPSON Unavailable [address] [facility] [address] + [place] [address] R Unavailable Unavailable Unavailable R Unavailable Unavailable [...] Unavailable Unavailable JAY BRETT Unavailable Unavailable + ~[phone] BRETT THOMPSON Unavailable Unavailable + ~([phone] Care Team Providers Name Role Phone SHEY ORTIZ, DR. SAM Castro Attending Unavailable KARTHIK ORTIZ, DR. LIO Rodriguez Primary Care Unavailable SHEY ORTIZ, DR. SAM Castro Attending Unavailable KARTHIK ORTIZ, DR. LIO Rodriguez Primary Care Unavailable Frances Carvalho Attending Unavailable Frances Carvalho Referring Unavailable GEEN ANGELES Primary Care Unavailable Tank, Delta Attending Unavailable Tank, Delta Referring Unavailable Tereletsky, Nghia Admitting Unavailable Tereletsky, Nghia Attending Unavailable Tereletsky, Nghia Referring Unavailable Tank, Delta Consulting Unavailable [facility] Unavailable Tereletsky, Nghia Admitting Unavailable [...] Attending Unavailable Tereletsky, Nghia Referring Unavailable Kelley, Pelican Attending Unavailable Tereletsky, Nghia Referring Unavailable Cebul, [...] Unknown R06.00 - Dyspnea, Jah Moody, Active [facility] unspecified / [facility] R06.00(ICD-10) Hospital Repository 03/13/2018 Unknown I10 - Essential Kelley, Russ Active [facility] (primary) hypertension Community / I10(ICD-10) Hospital Repository 03/13/2018 Unknown R94.31 - Abnormal Kelley, Pelican Active [facility] electrocardiogram Community [ECG] [EKG] / Hospital R94.31(ICD-10) Repository 03/13/2018 Unknown I25.10 - Kelley, Russ Active [facility] Atherosclerotic heart Community disease of [facility] coronary artery Repository without angina pectoris / I25.10(ICD-10) 02/17/2018 Unknown I21.4 - Non-ST Tereletsky, Active [facility] elevation (NSTEMI) [facility] myocardial infarction Hospital / I21.4(ICD-10) Repository 03/04/2018 Unknown I26.99 - Other TankDelta pack Active [facility] pulmonary embolism Community without acute cor Hospital [...] VISIT REPORT Observed: 06/03/2018 Status: F Source: [place] 10:46 AM [facility] HOSPITAL REPOSITORY [facility] Pulmonary Medicine of [address] [place] [address] OFFICE VISIT Date of Service: 06/03/18 MR#: [id number] Acct: [id number] Name: SYLVIA THOMPSON Jr. Rep #: [id number] : 1945 Provider: Delta Fu MD Age/Sex: 73/M Location: [facility] [place] Status: Signed Assessment AND Plan Problems 1. [...] in 1 year. Continue anticoagulation Orders Orders: [facility] 3 M FU: Chief Complaint: Reviewed [...] kg Intake Visit Reasons: 3 M FU Fuel Agent Required: No Accompanied by: Self Is patient [...] PULMONARY FUNCTION Observed: 05/08/2018 Status: F Source: [place] TEST 2:53 PM [facility] REPOSITORY [facility] Pulmonary Services/Neurology [address] [place] [address] MR#: [id number] Acct: [id number] Name: SYLVIA THOMPSON Jr. Rep #: [id number] : 1945 73 From: Jah Moody DO Referring Dr: Frances Carvalho ROUTEMAN Status: REG CLI Ordering Dr: Date: Location: [facility] Sex: M C INTRODUCTION: The patient [...] Carvalho Date Dictated: 05/08/181450 Date Transcribed: 05/08/181450 Solo Musician: DB Signed 6 MINUTE WALK TEST Observed: 05/03/2018 Status: F Source: [place] 5:48 AM [facility] REPOSITORY [facility] Pulmonary Services/Neurology [address] [place] [address] MR#: [id number] Acct: [id number] Name: SYLVIA THOMPSON Rep #: [id number] : 1945 73 From: Delta Fu MD Referring Dr: Frances Carvalho NP Date: Ordering Dr: Sex: M C Location: PSN PSN 6 Minute Walk Test - 6 Minute Walk Test 6 Minute Walk Test: 6 Minute Walk Test PSN:6-Minute Walk Test Start: 05/02/18 09:21 Freq: Status: Active Protocol: RESP.6MINW Document 05/02/18 09:21 RANJIT (Rec: 05/02/18 09:23 [facility] [id number] 6 Minute Walk Test Date Performed 05/02/18 [...] Date Dictated: 05/02/18 1524 Date Transcribed: 05/02/181523 Solo Musician: Delta Fu Signed PULMONARY VISIT REPORT Observed: 02/28/2018 Status: F Source: [place] 4:16 PM [facility] REPOSITORY Pulmonary Medicine [address] [place] [address] OFFICE VISIT Date of Service: 02/26/18 MR#: [id number] Acct: [id number] Name: SYLVIA THOMPSON Jr. Rep #: [id number] : 1945 Provider: Frances Carvalho Age/Sex: 73/M Location: [facility] [place] Status: Signed Assessment AND Plan 1. Acute [...] Orders Orders: Follow Up 10 Weeks (BWA) [facility] f/u: Chief Complaint: None HPI Comments Details: This is a 73 year old very pleasant M, currently under the care of Gene Angeles, here to follow up after a recent hospitalization at [facility], from February 08 - February 10, 2018 [...] LEAD ELECTROCARDIOGRAM Observed: 02/14/2018 Status: F Source: [place] 2:37 PM [facility] REPOSITORY [facility] Cardiovascular Services [address] [place] [address] 12 Lead EKG 02/09/18 0357 MR#: [id number] Acct: [id number] Name: JAYSYLVIA Jr. Rep #: [id number] : 1945 73 From: Lucho Sutton MD Attending Dr: Nghia Lopez DO Status: DIS IN Ordering Dr: Tay Carroll MD Date: 02/09/18 Location: [facility] Sex: M C Admitted: 02/08/18 Test Reason [...] IS UNCONFIRMED Confirmed by HERMAN BROOKS, LUCHO ([id number]), editorial project manager KI GARRETT ([id number]) on 02/14/2018 2:37:30 PM Referred By: Nghia Lopez Confirmed By:LUCHO SUTTON MD 02/14/18 1437 Date Lucho Sutton MD CC: Gene Angeles DO; Nghia Lopez DO; Tay Carroll MD Signed DISCHARGE SUMMARY Observed: 02/12/2018 Status: F Source: [place] 10:27 AM [facility] REPOSITORY [facility] Medical Records Department [address] [place] [address] Discharge Summary 02/12/18 1015 MR#: [id number] Acct: [id number] Name: SYLVIA THOMPSON Rep #: [id number] : 1945 73 From: Nghia Lopez DO PCP: Gene Angeles DO Status: DIS IN Y Location: [place] [id number] Discharge Date and Diagnosis Date of Admission: [...] was seen in the emergency room at [facility] with chief complaint of precordial chest pain. [...] PO BIDCM tablet 02/10/18 Primary Care Physician: [facility] Doctor,Out of [NON-STAFF] - Please follow up with your Primary Care Physician in: in 2- 3 weeks Please Follow Up With: Delta Fu MD When: in 2 weeks Please Follow Up With: your medicaid analyst as directed Disposition: Home Minutes spent on [...] Indicated Code Visit Inpatient E AND M: 04405 Disch Hosp 02/12/18 1027 <Electronically signed by Nghia Lopez DO> Date Nghia Lopez DO Cosigner Signature (if applicable): Date CC: Gene Angeles DO; Nghia Lopez DO Signed 12 LEAD ELECTROCARDIOGRAM Observed: 02/12/2018 Status: F Source: [place] 8:50 AM [facility] REPOSITORY [facility] Cardiovascular Services [address] [place] [address] 12 Lead EKG 02/08/18 1130 MR#: [id number] Acct: [id number] Name: SYLVIA THOMPSON Rep #: [id number] : 1945 73 From: Russ Benson MD Attending Dr: Nghia Lopez DO Status: DIS IN Ordering Dr: Jo Littlejohn MD Date: 02/08/18 Location: [facility] Sex: M C Admitted: 02/08/18 Test Reason [...] ECG Confirmed by KELLEY BROOKS, RUSS ([id number]), editorial project manager KI GARRETT ([id number]) on 02/12/2018 8:50:27 AM Referred By: Nghia Lopez Confirmed By:RUSS BENSON MD 02/12/18 0850 Date Russ Benson MD CC: Gene Angeles DO; Jo Littlejohn MD; Nghia Lopez DO Signed DISCHARGE INSTRUCTION Observed: 02/10/2018 Status: F Source: [place] 4:39 PM [facility] REPOSITORY [facility] Medical Records Department [address] [place] [address] Instructions for Home/Discharge Instructions 02/10/18 1636 MR#: [id number] Acct: [id number] Name: SYLVIA THOMPSON Rep #: [id number] : 1945 73 From: Nghia Lopez DO [...] PO BIDCM tablet 02/10/18 Primary Care Physician: [facility] Doctor,Out of [Primary Care Provider] - Please follow up with your Primary Care Physician in: in 2- 3 weeks Test Results: Test results from this visit will be discussed in further detail at your follow-up appointment, if applicable. Please Follow Up With: Delta Fu MD When: in 2 weeks Please Follow Up With: your medicaid analyst as directed 02/10/18 4513 <Electronically signed by Nghia Lopez DO> Date Nghia Lopez DO CC: Delta Fu MD; OUT OF [facility] DOCTOR VENOUS DUPLEX LOWER Observed: 02/10/2018 Status: F Source: [place] EXTREMITY 3:55 PM [facility] REPOSITORY [facility] Cardiovascular Services [address] [place] [address] Venous Duplex US - Trace Extrem 02/10/18 08 MR#: [id number] Acct: [id number] Name: JAYSYLVIA Gerald Farrell Rep #: [id number] : 1945 73 From: Allan Bailey MD Attending Dr: Nghia Lopez DO Status: ADM IN Ordering Dr: Nghia Lopez DO Date: 02/09/18 Location: [facility] Sex: M C Admitted: 02/08/18 Reason For [...] preliminary report was called and/or faxed to [facility]. Interpretation Summary No evidence for acute deep venous thrombosis bilateral lower extremities with patent and compressible bilateral great saphenous veins. Ordering Physician: Nghia Lopez Referring Physician: Nghia Lopez Performed By: Clary Cedillo RVT 02/10/18 1554 Date Allan Bailey MD CC: Nghia Lopez DO; OUT OF TOWN DOCTOR Date Dictated: 02/10/18824 Date Transcribed: 02/10/181553 Solo Musician: Signed ECHOCARDIOGRAM COMPLETE Observed: 02/10/2018 Status: F Source: [place] 1:45 PM [facility] REPOSITORY [facility] Cardiovascular Services [address] [place] [address] Echo Complete 02/10/18 1010 MR#: [id number] Acct: [id number] Name: SYLVIA THOMPSON Gerald Farrell Rep #: [id number] : 1945 73 From: Russ Benson MD Attending Dr: Nghia Lopez DO Status: ADM IN Ordering Dr: Nghia Lopez DO Date: 02/08/18 Location: [facility] Sex: M C Admitted: 02/08/18 Reason For [...] Dictated: 02/10/18 1010 Date Transcribed: 02/10/18 134 Solo Musician: Signed BEDSIDE GLUCOSE Collected: 02/10/2018 Status: F Source: [place] 11:19 AM [facility] HOSPITAL REPOSITORY TYPE CODE TESTS RESULT OUT OF REFERENCE UNITS RANGE LAB L501.080 70-110 mg/dL High BEDSIDE GLU 206 Result Comment: MANAGEMENT OF PATIENT CARE PER NURSING PROTOCOL Performed By: #### L501.080 #### [facility] Laboratory Point of Care [address] [place] [address] BEDSIDE GLUCOSE Collected: 02/10/2018 Status: F Source: [place] 6:34 AM [facility] REPOSITORY TYPE CODE TESTS RESULT OUT OF REFERENCE UNITS RANGE LAB L501.080 70-110 mg/dL High BEDSIDE GLU 144 Result Comment: MANAGEMENT OF PATIENT CARE PER NURSING PROTOCOL Performed By: #### L501.080 #### [facility] Laboratory Point of Care [address] [place] [address] BASIC METABOLIC Collected: 02/10/2018 Status: F Source: [place] PROFILE (BMP) 5:40 AM [facility] REPOSITORY TYPE CODE TESTS RESULT OUT OF [...] 9 Performed By: #### L500.2500, L501.5200 #### [facility] Laboratory [address] [facility] [place], [address] MAGNESIUM Collected: 02/10/2018 Status: F Source: [place] 5:40 AM [facility] REPOSITORY TYPE CODE TESTS RESULT OUT OF RANGE REFERENCE UNITS LAB L501.5200 1.6-2.6 mg/dL Low MG 1.5 Performed By: #### L500.2500, L501.5200 #### [facility] Laboratory [address] [facility] [place], [address] CONSULTATION Observed: 02/10/2018 Status: F Source: [place] 5:28 AM [facility] REPOSITORY [facility] Medical Records Department [address] [place] [address] Consultation 02/09/18 1134 MR#: [id number] Acct: [id number] Name: SYLVIA THOMPSON Jr. 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 Patient reports that he was involved in a golf 3rd mate and noted to have acute onset of [...] clots. 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 Patient [...] Patient exercises regularly by swimming and playing racqueSNUPI Technologiesall. Review of systems otherwise negative x10 systems. [...] Heart Disease - Patient's mother of an TX in her 60s Paternal History Items: Cancer [...] oximetry prior to discharge. 2. Non-ST elevation TX Patient was slightly elevated troponin, but no [...] response. Code Visit Inpatient E AND M: 44182 Init Hosp L3 02/10/18 0528 <Electronically signed by Delta Fu MD> Date Delta Fu MD Cosigner Signature (if applicable): Date CC: Delta Fu MD; gNhia Lopez DO; OUT OF TOWN DOCTOR Signed BEDSIDE GLUCOSE Collected: 02/09/2018 Status: F Source: [place] 10:03 PM [facility] REPOSITORY TYPE CODE TESTS RESULT OUT OF REFERENCE UNITS RANGE LAB L501.080 70-110 mg/dL High BEDSIDE GLU 205 Result Comment: MANAGEMENT OF PATIENT CARE PER NURSING PROTOCOL Performed By: #### L501.080 #### [facility] Laboratory Point of Care [address] [place] [address] BEDSIDE GLUCOSE Collected: 02/09/2018 Status: F Source: [place] 4:31 PM [facility] REPOSITORY TYPE CODE TESTS RESULT OUT OF REFERENCE UNITS RANGE LAB L501.080 70-110 mg/dL High BEDSIDE GLU 111 Result Comment: MANAGEMENT OF PATIENT CARE PER NURSING PROTOCOL Performed By: #### L501.080 #### [facility] Laboratory Point of Care [address] [place] [address] BEDSIDE GLUCOSE Collected: 02/09/2018 Status: F Source: [place] 11:52 AM [facility] REPOSITORY TYPE CODE TESTS RESULT OUT OF REFERENCE UNITS RANGE LAB L501.080 70-110 mg/dL High BEDSIDE GLU 288 Result Comment: MANAGEMENT OF PATIENT CARE PER NURSING PROTOCOL Performed By: #### L501.080 #### [facility] Laboratory Point of Care [address] [place] [address] BEDSIDE GLUCOSE Collected: 02/09/2018 Status: F Source: [place] 6:45 AM [facility] REPOSITORY TYPE CODE TESTS RESULT OUT OF REFERENCE UNITS RANGE LAB L501.080 70-110 mg/dL High BEDSIDE GLU 135 Result Comment: MANAGEMENT OF PATIENT CARE PER NURSING PROTOCOL Performed By: #### L501.080 #### [facility] Laboratory Point of Care [address] [place], [place] [address] BASIC METABOLIC Collected: 02/09/2018 Status: F Source: [place] PROFILE (BMP) 4:44 AM [facility] REPOSITORY TYPE CODE TESTS RESULT OUT OF [...] Performed By: #### L500.2500, L501.2300, L501.5200 #### [facility] Laboratory [address] [place], [place], [address] PHOSPHORUS Collected: 02/09/2018 Status: F Source: [place] 4:44 AM [facility] REPOSITORY TYPE CODE TESTS RESULT OUT OF RANGE REFERENCE UNITS LAB L501.2300 2.5-4.9 mg/dL Normal PHOS 2.8 Performed By: #### L500.2500, L501.2300, L501.5200 #### [facility] Laboratory [address] [place], [address] MAGNESIUM Collected: 02/09/2018 Status: F Source: [place] 4:44 AM [facility] REPOSITORY TYPE CODE TESTS RESULT OUT OF RANGE REFERENCE UNITS LAB L501.5200 1.6-2.6 mg/dL Low MG 1.1 Performed By: #### L500.2500, L501.2300, L501.5200 #### [facility] Laboratory [address] [place], [address] BEDSIDE GLUCOSE Collected: 02/08/2018 Status: F Source: [place] 10:15 PM [facility] REPOSITORY TYPE CODE TESTS RESULT OUT OF REFERENCE UNITS RANGE LAB L501.080 70-110 mg/dL High BEDSIDE GLU 134 Result Comment: MANAGEMENT OF PATIENT CARE PER NURSING PROTOCOL Performed By: #### L501.080 #### [facility] Laboratory Point of Care [address] [place] [address] TROPONIN-I Collected: 02/08/2018 Status: F Source: [place] 6:00 PM [facility] REPOSITORY Order Comment: 'TROP' Serial specimen #1, [...] Not every elevated troponin is indicative of TX. These values should be used with clinical judgement in examining the patient's clinical picture for diagnosis. To establish a diagnosis of TX versus myocardial injury, there must be a demonstrated rise and/or fall in the troponin values, in addition to ischemic symptoms, EKG changes, new regional wall motion abnormality, and/or angiographical evidence. PLEASE NOTE: REFERENCE RANGES EDITED 17 Performed By: #### L501.4010 #### [facility] Laboratory [address] [place], [address] HISTORY AND PHYSICAL Observed: 02/08/2018 Status: F Source: [place] EXAM 5:55 PM [facility] REPOSITORY [facility] Medical Records Department [address] [place] [address] History and Physical 02/08/18 1743 MR#: [id number] Acct: [id number] Name: SYLVIA THOMPSON Rep #: [id number] : 1945 73 From: Nghia Lopez DO PCP: OUT OF TOWN DOCTOR Status: ADM IN Y Location: [place] [address] Problem List (1) Chest pain Status: Acute Qualifiers: Chest pain type: precordial pain Qualified Code(s): R07.2 - Precordial pain History of Present Illness Date of Admission: 02/08/18 Chief Complaint: Chest pain The patient is a 73 year old M who was seen in the emergency room at [facility] with chief complaint of precordial chest pain [...] Heart Disease - Patient's mother of an TX in her 60s Paternal History Items: Cancer [...] Active Problems Chest pain (Acute) #1 acute osn-FVENO-digdmii will be admitted to PCU, he will be maintained on subcu Lovenox for full anticoagulation, cardiac enzymes will be cycled, he will be monitored on telemetry, patient will have an echocardiogram performed, patient will be seen in consultation by cardiology, patient will be maintained on a baby aspirin a day and Plavix 75 mg daily. #2 elevated d-vypfe-hleswgrd unclear, patient will undergo CTA of his [...] medications. Code Visit Inpatient E AND M: 17863 Init Hosp L3 02/08/18 4133 <Electronically signed by Nghia Lopez DO> Date Nghia Lopez DO Cosigner Signature: Date (if applicable) CC: Nghia Lopez DO; OUT OF TOWN DOCTOR Signed EMERGENCY DEPARTMENT Observed: 02/08/2018 Status: F Source: [place] SUMMARY 4:24 PM [facility] REPOSITORY [facility] Medical Records Department [address] [place] [address] Emergency Department Summary 02/08/18 1214 MR#: [id number] Acct: [id number] Name: SYLVIA THOMPSON Gerald Farrell Rep #: [id number] : 1945 73 From: Jo Littlejohn MD [...] Chest pain This note was generated with Pro V[employer] dictation software. It may contain incorrect words, spelling, and punctuation that were not noted in review of the chart prior to signing ED Disposition - Plan for ED Patient: Disposition: Acute Care Hospital [facility] Chief Complaint: Chest Pain What to do if you have Problems For any increased pain, shortness of breath, bleeding, nausea or vomiting, chest pain, or any unexpected problems, contact your Primary Care Provider. Call [facility] ([phone]) or report to the closest Emergency Room. Call 911 if necessary. 02/08/18 1624 <Electronically signed by Jo Littlejohn MD> Date Jo Littlejohn MD Cosigner Signature (If Indicated): Date CC: OUT OF TOWN DOCTOR BEDSIDE GLUCOSE Collected: 02/08/2018 Status: F Source: [place] 3:31 PM [facility] REPOSITORY TYPE CODE TESTS RESULT OUT OF REFERENCE UNITS RANGE LAB L501.080 70-110 mg/dL High BEDSIDE GLU 252 Result Comment: MANAGEMENT OF PATIENT CARE PER NURSING PROTOCOL Performed By: #### L501.080 #### [facility] Laboratory Point of Care [address] [place] [address] CTA CHEST W/WO Observed: 02/08/2018 Status: F Source: [place] CONTRAST 2:48 PM [facility] REPOSITORY [facility] Imaging Services [address] [place] [address] CTA Chest W/WO Contrast MR#: [id number] Acct: [id number] Name: SYLVIA THOMPSON Jr. Rep #: [id number] : 1945 M 73 From: Ruiz Avelar MD PCP: OUT OF TOWN DOCTOR Status: ADM IN Study: CTA Chest W/WO Contrast Date of Exam: 02/08/18 Exam# [id number] Ordering Dr: Nghia Lopez DO STUDY: CTA [...] Nghia Lopez DO; OUT OF TOWN DOCTOR Solo Musician: Signed D-DIMER QUANTITATIVE Collected: 02/08/2018 Status: F Source: [place] (DVT/PE) 12:36 PM [facility] REPOSITORY Order Comment: REDRAW. PREVIOUS SPECIMEN REJECTED [...] SAME . Performed By: #### L300.8000 #### [facility] [place], [address] CBC W/DIFF, AUTOMATED Collected: 02/08/2018 Status: F Source: [place] 12:14 PM [facility] REPOSITORY TYPE CODE TESTS RESULT OUT OF [...] Lymph 0.98 Performed By: #### L100.0100 #### [facility] Laboratory [address] [place], [address] BASIC METABOLIC Collected: 02/08/2018 Status: F Source: [place] PROFILE ([facility]) 12:14 PM [facility] REPOSITORY Order Comment: 'TROP' Serial specimen #1, [...] 16 Performed By: #### L500.2500, L501.4010 #### [facility] Laboratory [address] [place], [place], [address] TROPONIN-I Collected: 02/08/2018 Status: F Source: [place] 12:14 PM [facility] REPOSITORY Order Comment: 'TROP' Serial specimen #1, #2, #3, or #4: 1 TYPE CODE TESTS RESULT OUT OF RANGE REFERENCE UNITS LAB L501.4010 <0.045 ng/mL High 0.379 TROPONIN-I Result Comment: TROPONIN-I EXPECTED VALUES <0.045 Negative 0.045 - 0.590 Consistent with Cardiac Damage > OR = 0.600 Critical Value Not every elevated troponin is indicative of TX. These values should be used with clinical judgement in examining the patient's clinical picture for diagnosis. To establish a diagnosis of TX versus myocardial injury, there must be a demonstrated rise and/or fall in the troponin values, in addition to ischemic symptoms, EKG changes, new regional wall motion abnormality, and/or angiographical evidence. PLEASE NOTE: REFERENCE RANGES EDITED 17 Performed By: #### L500.2500, L501.4010 #### [facility] Laboratory [address] [place], [place], [address] CHEST 1 VIEW Observed: 02/08/2018 Status: F Source: [place] (PORTABLE) 12:14 PM [facility] HOSPITAL REPOSITORY [facility] Imaging Services [address] [place] [address] Chest 1 View (Portable) MR#: [id number] Acct: [id number] Name: SYLVIA THOMPSON Jr. Rep #: [id number] : 1945 M 73 From: Homer Van MD PCP: OUT OF TOWN DOCTOR Status: REG ER Study: Chest 1 View (Portable) Date of Exam: 02/08/18 Exam# [id number] Ordering Dr: Jo Littlejohn MD STUDY: X-RAY [...] Jo Littlejohn MD; OUT OF TOWN DOCTOR Solo Musician: Signed ALLERGIES ALLERGIES DATE TYPE / CODE NAME / CODE REACTION SEVERITY SOURCE 06/03/2018 Drug No Known Unknown [facility] Allergy/4160 Allergies/F00 [facility] [address](SNOMED 9985938(RXNOR Repository CT) M) ENCOUNTERS ENCOUNTERS ADMIT/DISCHARGE ACCOUNT NUMBER ADMITTING ENCOUNTER LOCATION SOURCE CLASS 06/03/2018/06/03/19 [id number] Ambulatory BMSBuilding: [place] [address] BMS.PMW [facility] Repository 05/08/2018 [id number] Ambulatory BMSBuilding: [facility] Repository 05/06/2018 [id number] Ambulatory [facility] ding:PSN Repository 05/02/2018 [id number] Ambulatory BMSBuilding: [facility] Repository 05/02/2018 [id number] Ambulatory [facility] ding:PSN Repository 02/26/2018/02/27/20 [id number] Ambulatory BMSBuilding: [place] [address] BMS.[facility] Repository 02/09/2018 [id number] Ambulatory BMSBuilding: [facility] Repository 02/08/2018/02/11/20 [id number] Keishaeletsadrián, Inpatient [address] ding:PCURoom Repository : ENU596Vtr: 1 02/08/2018 [id number] [place], Ambulatory BMSBuilding: [place] BMS.[facility] Repository 02/08/2018 [id number] [place], Ambulatory BMSBuilding: [place] BMS.[facility] Repository 02/08/2018 [id number] Tereletsky, Ambulatory BMSBuilding: [place] BMS.[facility] Repository 02/08/2018/02/11/20 [id number] Ambulatory BMSBuilding: [address] Repository 02/08/2018/02/11/20 [id number] Ambulatory BMSBuilding: [address] Repository 02/08/2018/02/11/20 [id number] Ambulatory BMSBuilding: [address] Repository 11/15/2017/11/16/19 [id number] Ambulatory BBuilding:[address] Repository 09/23/2017 [id number] Ambulatory BBuilding:[facility] Repository PAYERS PAYERS ENCOUNTER GUARANTOR PAYER SUBSCRIBER SOURCE 06/03/2018 SYLVIA THOMPSON Primary Insurance:VAN Allison Jr.[address] [facility]: Jr.: [facility] PATH MEBGKGQCEffective [id number] Date:3974-89-71LX BOX Repository [address]Fmc: [phone] [facility], [place] [phone] (HP) [phone]: 06/03/2018 Secondary NOT GIVENUNK [place] Insurance:SELF PAY Community INSURANCEPolicy Number: Hospital Effective Repository Date:2018-05-28 05/08/2018 SYLVIA THOMPSON Primary Insurance:AETNA SYLVIA Michaelsoster Jr.2714 MILL MCRPolicy Number: Jr.: Community [address] PATH Joshive [id number] [place] Date:7084-68-68MW BOX Repository [address]Lhc: [phone] [place], [place] [phone] (HP) [phone]: 05/08/2018 Secondary NOT GIVENUNK [place] Insurance:SELF PAY Community INSURANCEPolicy Number: Hospital Effective Repository Date:2018-05-08 05/06/2018 SYLVIA THOMPSON Primary Insurance:AETNA SYLVIA Michaelsoster Jr.Patience4 MILL MCRPolicy Number: Jr.: Community [place]ID[place] PATH OLEGARIOKGRodriguezfective [id number] Community Hospital [facility] [place] Date:7908-33-57VZ BOX Repository [address]Vig: [phone] [facility] [place] [phone] (HP) [phone]: 05/06/2018 Secondary NOT GIVENUNK [place] Insurance:SELF PAY Community INSURANCEPolicy Number: Hospital Effective Repository Date:2018-02-26 05/02/2018 SYLVIA THOMPSON Primary Insurance:AETNA SYLVIA Michaelsoster Jr.2714 MILL MCRPolicy Number: Jr.: Community [address] PATH Pablofective [id number] Community Hospital [facility] [place] Date:0359-62-22XO BOX Repository [address]Geo: [phone] [facility] [place] [phone] (HP) [phone]: 05/02/2018 Secondary NOT GIVENUNK [place] Insurance:SELF PAY Community INSURANCEPolicy Number: Hospital Effective Repository Date:2018-05-02 05/02/2018 SYLVIA THOMPSON Primary Insurance:AETNA SYLVIA Allison JrStephanie2714 AGNIESZKA MCRPolicy Number: Jr.: Community [place] PATH MEBGKGQCEffective [id number] Community Hospital [facility] [place] Date:4531-32-15FK BOX Repository [address]Gtv: [phone] [facility], [place] [phone] () [phone]: 05/02/2018 Secondary NOT GIVENUNK [place] Insurance:SELF PAY Community INSURANCEPolicy Number: Hospital Effective Repository Date:2018-02-26 02/26/2018 SYLVIA THOMPSON Primary Insurance:AETNA SYLVIA Allison JrStephanie2714 AGNIESZKA MCRPolicy Number: Jr.: [facility] PATH BGKGQCEfjovita [id number] Community Hospital [facility] [place] Date:2498-71-24BT BOX Repository [address]Xpg: [phone] [facility], [place] [phone] () [address]ZE: 02/26/2018 Secondary NOT GIVENUNK [place] Insurance:SELF PAY Community INSURANCEPolicy Number: Hospital Effective Repository Date:2018-02-18 02/09/2018 SYLVIA THOMPSON Primary Insurance:AETNA SYLVIA Sandra4 AGNIESZKA MCRPolicy Number: Jr.: [facility] PATH MEBGKGQCEfpaulive [id number] Community Hospital [facility] [place] Date:5401-44-30LY BOX Repository [address]Fpc: [phone] [facility], [place] [phone] () [address]FT: 02/09/2018 Secondary NOT GIVENUNK [place] Insurance:SELF PAY Community INSURANCEPolicy Number: Hospital Effective Repository Date:2018-02-09 02/08/2018 SYLVIA THOMPSON Primary Insurance:AETNA SYLVIA Sandra4 AGNIESZKA MCRPolicy Number: Jr.: Community [place] PATH BGKGQCEffective [id number] Community Hospital [facility] [place] Date:6092-59-45RV BOX Repository [address]Hba: [phone] [place], [place] [phone] (HP) [phone]: 02/08/2018 Secondary NOT GIVENUNK [place] Insurance:SELF PAY Community INSURANCEPolicy Number: Hospital Effective Repository Date:2018-02-08 02/08/2018 SYLVIA THOMPSON Primary Insurance:AETNA SYLVIA Allison Jr.2714 [address] MCRPolicy Number: Jr.: Community [place] PATH BGKGQCEffective [id number] Community Hospital [place] Date:0547-45-32AE BOX Repository [address]Dpa: [phone] [place], [place] [phone] (HP) [phone]: 02/08/2018 Secondary NOT GIVENUNK [place] Insurance:SELF PAY Community INSURANCEPolicy Number: Hospital Effective Repository Date:2018-02-08 02/08/2018 SYLVIA THOMPSON Primary Insurance:AETNA SYLVIA Allison JrStephanie2714 AGNIESZKA MCRPolicy Number: Jr.: Community [place] PATH BGKGQCEffective [id number] Community Hospital [facility] [place] Date:8612-50-03CE BOX Repository [address]Cgg: [phone] [facility] [place] [phone] (HP) [phone]: 02/08/2018 Secondary NOT GIVENUNK [place] Insurance:SELF PAY Community INSURANCEPolicy Number: Hospital Effective Repository Date:2018-02-08 02/08/2018 SYLVIA THOMPSON Primary Insurance:AETNA SYLVIA Allison Jr.2714 [address] MCRPolicy Number: Jr.: Community [place] [address] BGKGQCEffective [id number] Community Hospital – [place] Date:8784-89-34FS BOX Repository [address]Sqq: [phone] [facility] [place] [phone] (HP) [phone]: 02/08/2018 Secondary NOT GIVENUNK [place] Insurance:SELF PAY Community INSURANCEPolicy Number: Hospital Effective Repository Date:2018-02-08 02/08/2018 SYLVIA THOMPSON Primary Insurance:AETNA SYLVIA Gerald Allison Jr.2714 [address] MCRPolicy Number: Jr.: Community [place] PATH BGKGQCSarwat [id number] Community Hospital – [place] Date:9732-84-43WA BOX Repository [address]Xyt: [phone] [place], [place] [phone] (HP) [phone]: 02/08/2018 Secondary NOT GIVENUNK [place] Insurance:SELF PAY Community INSURANCEPolicy Number: Hospital Effective Repository Date:2018-02-08 02/08/2018 SYLVIA THOMPSON Primary Insurance:AETNA SYLVIA Allison Jr.2714 [address] MCRPolicy Number: Jr.: Community [address] PATH BGKGQCEfjovita [id number] Community Hospital – [place] Date:7675-98-94MD BOX Repository [address]Mtk: [phone] [place], [place] [phone] () [phone]: 02/08/2018 Secondary NOT GIVENUNK [place] Insurance:SELF PAY Community INSURANCEPolicy Number: Hospital Effective Repository Date:2018-02-08 02/08/2018 SYLVIA THOMPSON Primary Insurance:AETNA SYLVIA Allison Jr.2714 [address] MCRPolicy Number: Jr.: Community [address] PATH MEBGKGQCEffective [id number] Community Hospital – [place] Date:2783-62-71UZ BOX Repository [address]Mlk: [phone] [facility] [place] [phone] (HP) [phone]: 02/08/2018 Secondary NOT GIVENUNK [place] Insurance:SELF PAY Community INSURANCEPolicy Number: Hospital Effective Repository Date:2018-02-08 11/15/2017 SYLVIA THOMPSON Primary Insurance:AETNA SYLVIA Gerald ANGELALISSETT [facility]ly [facility] MEDICARE [facility] Jr.: [facility] Number: [id number] Repository [facility] PATH MEBGKGQCEffective [address] [place], [place] Date:2017-10-02 - PATH [email or web address] [id number] Name:KIMBERLEYO TANYA [place] NET.COMTel: [address], [place] [address]Yju: [phone]: (HP) [phone] (HP) (WP) 09/23/2017 SYLVIA THOMPSON Primary SYLVIA FisherAt[facility].: Insurance:CLINICAL Jr.: [facility] [id number] [facility] [id number] Repository [facility] PATH Number: [address] [place], [place] [id number] PATH [email or web address] Date:2017-09-23 - [facility] [place] NET.COMTel: [phone] [phone]: [phone] Name:[id number] [facility] [phone] (HP) [place], [place] [address]TZ: (HP)Tel: (WP)
== END ==
PROVIDERS: Referring Provider Nurse Practitioner Acute Care; Visit Provider Nurse Practitioner Acute Care
DX: R06.00 Dyspnea, unspecified (principal)
CPT/HCPCS: 94060; 94726; 94729

== ENCOUNTER → 2019-04-30 09:24 | Outpatient (CLI) | payer MEDICARE, SELFPAY ==
[2018-06-03 09:53] VITALS: BMI 32.5
--- NOTE | 2019-04-30 14:21 | PFTCOMP_ITS ---
COMPLETE PULMONARY FUNCTION TEST INTERPRETATION Brief HPI: Patient is a 74 year old male, currently under the care of myself, who presents to [facility] for complete pulmonary function tests secondary to diagnosis of saddle PE. Respiratory therapist reports good effort and reproducible results. Interpretation: Forced expiration spirometry shows no large airways obstructive ventilatory defect with an FEV1 of 94% predicted. There is no significant bronchodilator response by strict ATS criteria. Spirograms are of good quality and plateau slowly, indicating slowly emptying areas of the lungs. The respiratory flow volume loop shows decreased expiratory flow rates at high lung volumes consistent with small airways obstruction. Lung volumes by body plethysmography show a normal total lung capacity at 7.03 L, 103% predicted. All other lung volumes are within normal limits. Diffusion capacity by carbon monoxide is normal at 83% predicted. The airway resistance is normal. Compared to previous pulmonary function tests from 05/06/2018, there has been no significant change. Impression: Grossly normal pulmonary function test with some stigmata of possible small airways disease
== END ==
PROVIDERS: Referring Provider Internal Medicine Critical Care Medicine; Visit Provider Internal Medicine Critical Care Medicine
DX: I26.92 Saddle embolus of pulmonary artery without acute cor pulmonale (principal); E66.9 Obesity, unspecified
CPT/HCPCS: 94060; 94726; 94729